=== PATIENT | male | born 1955 | race Caucasian/White ===

== ENCOUNTER 2025-02-05 17:14 | Inpatient (IN) | payer MEDICARE, SELFPAY ==
[2025-02-05] VITALS (8 sets, daily range): BP systolic 94–122; BP diastolic 48–73
--- NOTE | 2025-02-05 12:08 | ED.GENMED ---
History of Present Illness
<Junie Jenkins PA-C - Last Filed: 02/05/25 19:40>
General
Chief Complaint: Failure to Thrive
Source: patient and ambulance crew
Exam Limitations: none
Time Seen by Provider: 02/05/25 11:50
History of Present Illness
History of Present Illness:
69yoM with no reported past medical history presenting via EMS for evaluation of failure to thrive. Patient lives in a third floor apartment. His landlord came to visit him today and was concerned about his living situation and called EMS.
Patient reports feeling generally weak for the past few weeks. He last fell about a week ago and reports some right-sided rib discomfort. He denies any head injury or headache. He is losing weight but he is unsure how much. He feels very
dehydrated. He typically only eats a can of pears a day and drinks coffee. On review of systems, he also endorses a cough, shortness of breath, and bilateral leg swelling. No fevers, vomiting, diarrhea. He smokes 1ppd. He has not drank any
alcohol in a few weeks.
Past History
<Junie Jenkins PA-C - Last Filed: 02/05/25 19:40>
Past History
ED Past Medical History: None
ED Past Surgical History: None
Social History
Tobacco: Non-smoker
Phy Exam
<Junie Jenkins PA-C - Last Filed: 02/05/25 19:40>
Physical Exam
Physical Exam:
Chronically ill appearing, severely cachectic
General Physical Exam
General Presentation: no apparent distress
General age: appears older than age
General Skin: warm and dry
General Habitus: cachetic, failure to thrive and poor hygiene
General Mental: alert
General Hydration: dry mucous membranes
ENT Exam
ENT Exam: normocephalic
Cardiovascular Exam
Cardiovascular Exam: regular rate/rhythm and other (2+ pitting edema in bilateral lower extremities)
Pulmonary Exam
Pulmonary Exam: lungs clear, no respiratory distress, no rales, no crackles, no rhonchi and no wheezing
Gastrointestinal Exam
Gastrointestinal Exam: non tender and soft
Neurological Exam
Neurological Exam: alert
[place] Coma Scale
Eye Opening: Spontaneous
Verbal Response: Oriented
Motor Response: Obeys Commands
GCS Total Score: 15
Skin Exam
Skin Exam: warm/dry
Course
<Junie Jenkins PA-C - Last Filed: 02/05/25 19:40>
Orders/Labs/Results
Orders:
Orders
02/05/25 Lunch
Regular
02/05/25 12:05
Cardiac Monitoring- Treatment ONCE
0.9% Sodium Chloride 500 ml [Nss] 500 ml IV BOLUS
CR Ribs-right 3 Vw W/pa Chest* Urgent
Comment:
Reason For Exam: R sided rib pain
02/05/25 12:06
Electrocardiogram (*1) Urgent
Reason for Study: Fatigue / Weakness
EKG- Treatment ONCE
Urinalysis Reflex To Culture Urgent
Date Specimen was Collected: 02/05/25
Time Specimen was Collected: 12:13
02/05/25 12:21
Complete Blood Count/With Diff Urgent
Comprehensive Metabolic Panel Urgent
Free T4 Urgent
Magnesium Urgent
NT-proBNP Urgent
Prothrombin Time Urgent
TSH Reflex To Free T4 Urgent
Total CK [Creatine Phosphokinase] Urgent
Troponin I Urgent
02/05/25 13:07
0.9% Sodium Chloride 500 ml [Nss] 500 ml IV BOLUS
02/05/25 15:40
Admit/Transfer Patient As Directed
Co-Sign Provider:
Level of Care: Inpatient admission
Assign to:: Telemetry
Physician / Group: Hospitalist
Diagnosis: JULIETA
Reason for Telemetry: Arrhythmia
Date to Stop Telemetry: 02/08/25
Time to Stop Telemetry: 11:00
Reason for Hospitalization: JULIETA
Expected length of stay greater than two midnights?: Yes
ELOS- Estimated Length of Stay in days: 2
I certify the patient meets the requirements for IP care: Yes
02/05/25 15:41
PRN Pain Medication Management As Directed
May give lesser potent ordered pain med per pt: Yes
preference::
Protocol:: Medication orders for pain may be administered in a
manner that supports deferring to patient preference
when the pt is:
- Requesting an ordered lesser potent pain medication.
Least to most potent pain medications are defined
as: acetaminophen < NSAID < tramadol < opioids
(morphine, oxycodone, hydromorphone).
- Requesting a lesser dose of the same medication IF
ORDERED.
- Requesting a less intrusive route of administration
if both routes are prescribed by the provider (PO <
IV).
02/05/25 15:42
Code Status As Directed
Resuscitation Status: Do not resuscitate
Reached after discussion with pt or family/Healthcare POA: Yes
DNR Bracelet Application ONCE
02/05/25 15:47
Thiamine Injection 200 mg IV NOW STA
02/05/25 15:48
CT Head W/o Iv Contrast Urgent
Comment:
Reason For Exam: confusion, fall
02/05/25 18:57
Troponin I Q6H
Comment: at admission & every 6 hours x 2 (3 total), ECG to be done with each level
02/05/25 18:57
Echo 2D MMode Color/Doppler Routine
Reason for Study: heart failure
Ferritin Routine
Folate Routine
Haptoglobin [S] Routine
Iron Routine
LDH Routine
Reticulocyte Count Routine
Serum Osmolality Routine
Total Iron Binding Routine
Urine Osmolality Random [Osmolality, Random Urine] Routine
Urine Sodium Routine
Vitamin B12 Routine
Vitamin D, 25-OH Routine
Activity As Directed
Activity Level: As Tolerated
Intake/ Output As Directed
Frequency: Per unit guidelines
Patient Education As Directed
Type: CHF folder
Comment: give on admission. Document in Interdisciplinary Education record
Vital Signs As Directed
Frequency: Other
Additional Instructions:: Q12 or per unit guidelines if more frequent.
Weight As Directed
Frequency: Once
Type of Scale: Standing Scale
Comment: Upon Admission. If unable to stand, use balanced bed scale.
Pulse Ox/cont/shift [RESP] Routine
Quantity: 1
Special Instructions: Daily pulse oximetry at rest. If greater than 92% at rest also obtain pulse oximetry
while ambulating as tolerated.
DX Deep Vein Thrombosis Video Routine
02/05/25 19:15
Heparin 5,000 units SC Q8
02/05/25 20:00
FOLic ACID [Folvite] 1 mg 0.9% Sodium Chloride 50 ml [Nss] 50 ml IV Q24H
Nicotine [Nicoderm Transdermal] 14 mg TRANSDERM DAILY
02/06/25 00:57
Troponin I Q6H
Comment: at admission & every 6 hours x 2 (3 total), ECG to be done with each level
02/06/25 06:00
Complete Blood Count/With Diff IN AM
Comprehensive Metabolic Panel IN AM
Levothyroxine [Synthroid] 25 mcg PO DAILY @ 0600
02/06/25 08:00
Thiamine Injection 100 mg IM DAILY
02/08/25 11:00
DC Protocol for Telemetry ONCE
Abnormal Lab Results
02/05/25
12:21
RBC 2.99 L 10^6/uL
(4.70-6.10)
Hgb 9.6 L g/dL
(13.0-18.0)
Hct 29.2 L %
(39.0-52.0)
MCV 97.7 H fL
(80.0-94.0)
MCH 32.1 H pg
(27.0-31.0)
MCHC 32.9 L g/dL
(33.0-37.0)
Plt Count 84 L 10^3/uL
(130-400)
MPV 12.9 H fL
(7.4-10.4)
Abs Immat Gran (auto) 0.1 H 10^3/uL
(0-0.05)
Absolute Neuts (auto) 9.2 H 10^3/uL
(1.4-6.5)
Absolute Lymphs (auto) 0.6 L 10^3/uL
(1.2-3.4)
Absolute Monos (auto) 0.8 H 10^3/uL
(0.1-0.6)
Immature Gran % 0.7 H %
(0-0.5)
Neutrophils % 86.2 H %
(42.2-75.2)
Lymphocytes % 5.8 L %
(20.5-51.1)
Sodium 133 L mmol/L
(135-145)
BUN 32 H mg/dl
(9-20)
Creatinine 2.3 H mg/dL
(0.7-1.3)
Calcium 7.6 L mg/dl
(8.4-10.2)
Magnesium 2.5 H mg/dl
(1.6-2.3)
AST 82 H U/L
(17-59)
Alkaline Phosphatase 127 H U/L
(38-126)
Creatine Kinase 548 H U/L
(55-170)
Troponin I 0.466 H* ng/ml
Total Protein 4.8 L g/dl
(6.3-8.2)
Albumin 2.2 L g/dl
(3.5-5.0)
TSH (Reflex) 17.50 H uIU/ml
(0.47-4.68)
Free T4 0.60 L ng/dl
(0.78-2.19)
02/05/25 12:21
02/05/25 12:21
Vital Signs
Initial and Last Documented VS:
Initial Vital Signs
Temp
97.7 F
02/05/25 11:46
Last Documented Vital Signs
Temp Pulse Resp BP Pulse Ox
97.7 F 68 16 109/63 98
02/05/25 11:46 02/05/25 19:01 02/05/25 19:01 02/05/25 19:01 02/05/25 19:01
<Erma Phillips MD - Last Filed: 02/05/25 13:12>
Orders/Labs/Results
Orders:
Orders
02/05/25 Lunch
Regular
02/05/25 12:05
Cardiac Monitoring- Treatment ONCE
0.9% Sodium Chloride 500 ml [Nss] 500 ml IV BOLUS
CR Ribs-right 3 Vw W/pa Chest* Urgent
Comment:
Reason For Exam: R sided rib pain
02/05/25 12:06
Electrocardiogram (*1) Urgent
Reason for Study: Fatigue / Weakness
EKG- Treatment ONCE
Urinalysis Reflex To Culture Urgent
Date Specimen was Collected: 02/05/25
Time Specimen was Collected: 12:13
02/05/25 12:21
Complete Blood Count/With Diff Urgent
Comprehensive Metabolic Panel Urgent
Free T4 Urgent
Magnesium Urgent
NT-proBNP Urgent
Prothrombin Time Urgent
TSH Reflex To Free T4 Urgent
Total CK [Creatine Phosphokinase] Urgent
Troponin I Urgent
02/05/25 13:07
0.9% Sodium Chloride 500 ml [Nss] 500 ml IV BOLUS
02/05/25 15:40
Admit/Transfer Patient As Directed
Co-Sign Provider:
Level of Care: Inpatient admission
Assign to:: Telemetry
Physician / Group: Hospitalist
Diagnosis: JULIETA
Reason for Telemetry: Arrhythmia
Date to Stop Telemetry: 02/08/25
Time to Stop Telemetry: 11:00
Reason for Hospitalization: JULIETA
Expected length of stay greater than two midnights?: Yes
ELOS- Estimated Length of Stay in days: 2
I certify the patient meets the requirements for IP care: Yes
02/05/25 15:41
PRN Pain Medication Management As Directed
May give lesser potent ordered pain med per pt: Yes
preference::
Protocol:: Medication orders for pain may be administered in a
manner that supports deferring to patient preference
when the pt is:
- Requesting an ordered lesser potent pain medication.
Least to most potent pain medications are defined
as: acetaminophen < NSAID < tramadol < opioids
(morphine, oxycodone, hydromorphone).
- Requesting a lesser dose of the same medication IF
ORDERED.
- Requesting a less intrusive route of administration
if both routes are prescribed by the provider (PO <
IV).
02/05/25 15:42
Code Status As Directed
Resuscitation Status: Do not resuscitate
Reached after discussion with pt or family/Healthcare POA: Yes
DNR Bracelet Application ONCE
02/05/25 15:47
Thiamine Injection 200 mg IV NOW STA
02/05/25 15:48
CT Head W/o Iv Contrast Urgent
Comment:
Reason For Exam: confusion, fall
02/05/25 18:57
Troponin I Q6H
Comment: at admission & every 6 hours x 2 (3 total), ECG to be done with each level
02/05/25 18:57
Echo 2D MMode Color/Doppler Routine
Reason for Study: heart failure
Ferritin Routine
Folate Routine
Haptoglobin [S] Routine
Iron Routine
LDH Routine
Reticulocyte Count Routine
Serum Osmolality Routine
Total Iron Binding Routine
Urine Osmolality Random [Osmolality, Random Urine] Routine
Urine Sodium Routine
Vitamin B12 Routine
Vitamin D, 25-OH Routine
Activity As Directed
Activity Level: As Tolerated
Intake/ Output As Directed
Frequency: Per unit guidelines
Patient Education As Directed
Type: CHF folder
Comment: give on admission. Document in Interdisciplinary Education record
Vital Signs As Directed
Frequency: Other
Additional Instructions:: Q12 or per unit guidelines if more frequent.
Weight As Directed
Frequency: Once
Type of Scale: Standing Scale
Comment: Upon Admission. If unable to stand, use balanced bed scale.
Pulse Ox/cont/shift [RESP] Routine
Quantity: 1
Special Instructions: Daily pulse oximetry at rest. If greater than 92% at rest also obtain pulse oximetry
while ambulating as tolerated.
DX Deep Vein Thrombosis Video Routine
02/05/25 19:15
Heparin 5,000 units SC Q8
02/05/25 20:00
FOLic ACID [Folvite] 1 mg 0.9% Sodium Chloride 50 ml [Nss] 50 ml IV Q24H
Nicotine [Nicoderm Transdermal] 14 mg TRANSDERM DAILY
02/06/25 00:57
Troponin I Q6H
Comment: at admission & every 6 hours x 2 (3 total), ECG to be done with each level
02/06/25 06:00
Complete Blood Count/With Diff IN AM
Comprehensive Metabolic Panel IN AM
Levothyroxine [Synthroid] 25 mcg PO DAILY @ 0600
02/06/25 08:00
Thiamine Injection 100 mg IM DAILY
02/08/25 11:00
DC Protocol for Telemetry ONCE
Abnormal Lab Results
02/05/25
12:21
RBC 2.99 L 10^6/uL
(4.70-6.10)
Hgb 9.6 L g/dL
(13.0-18.0)
Hct 29.2 L %
(39.0-52.0)
MCV 97.7 H fL
(80.0-94.0)
MCH 32.1 H pg
(27.0-31.0)
MCHC 32.9 L g/dL
(33.0-37.0)
Plt Count 84 L 10^3/uL
(130-400)
MPV 12.9 H fL
(7.4-10.4)
Abs Immat Gran (auto) 0.1 H 10^3/uL
(0-0.05)
Absolute Neuts (auto) 9.2 H 10^3/uL
(1.4-6.5)
Absolute Lymphs (auto) 0.6 L 10^3/uL
(1.2-3.4)
Absolute Monos (auto) 0.8 H 10^3/uL
(0.1-0.6)
Immature Gran % 0.7 H %
(0-0.5)
Neutrophils % 86.2 H %
(42.2-75.2)
Lymphocytes % 5.8 L %
(20.5-51.1)
Sodium 133 L mmol/L
(135-145)
BUN 32 H mg/dl
(9-20)
Creatinine 2.3 H mg/dL
(0.7-1.3)
Calcium 7.6 L mg/dl
(8.4-10.2)
Magnesium 2.5 H mg/dl
(1.6-2.3)
AST 82 H U/L
(17-59)
Alkaline Phosphatase 127 H U/L
(38-126)
Creatine Kinase 548 H U/L
(55-170)
Troponin I 0.466 H* ng/ml
Total Protein 4.8 L g/dl
(6.3-8.2)
Albumin 2.2 L g/dl
(3.5-5.0)
TSH (Reflex) 17.50 H uIU/ml
(0.47-4.68)
Free T4 0.60 L ng/dl
(0.78-2.19)
02/05/25 12:21
02/05/25 12:21
Vital Signs
Initial and Last Documented VS:
Initial Vital Signs
Temp
97.7 F
02/05/25 11:46
Last Documented Vital Signs
Temp Pulse Resp BP Pulse Ox
97.7 F 68 16 109/63 98
02/05/25 11:46 02/05/25 19:01 02/05/25 19:01 02/05/25 19:01 02/05/25 19:01
Laurielt;Junie Jenkins PA-C - Last Filed: 02/05/25 19:40>
MDM/Problems Addressed
Differential Diagnosis Includes:
69yoM presenting via EMS for failure to thrive. Juan Jose call 911 due to poor living conditions. He is cachectic and chronically ill appearing on exam. Has not seen a PCP in many years. Multiple symptoms including generalized weakness, feeling
dehydrated, decreased PO intake, bilateral leg swelling. VSS. Differential diagnosis includes but is not limited to: Failure to thrive, electrolyte abnormality, JULIETA, dehydration, malignancy
Initial ED plan: Check cardiac labs, CK, magnesium, UA, EKG, and CXR. 500cc NS bolus.
<Junie Jenkins PA-C - Last Filed: 02/05/25 19:40>
*Pulse Oximetry
Patient hypoxic: no
*EKG
Interpreted by ED Provider?: Yes
EKG Intrepretation Date: 02/05/25
Heart Rate: 56
Rate: bradycardiac
Rhythm: sinus
[place]: normal axis
Interval: long QT (538)
QRS Pattern: low voltage
Ischemia: T-wave inversion (V2-V3)
*Critical Care Note
Total Time (30-74mins, 75-104mins- exclusive of procedures): Not Applicable
<Junie Jenkins PA-C - Last Filed: 02/05/25 19:40>
Update Note
Update Note:
Multiple abnormalities on lab work. Creatinine 2.3, unclear baseline as no prior labs available for comparison. Hemoglobin 9.6 and platelet count 84. Troponin elevated at 0.466. EKG shows normal sinus rhythm with T wave inversions in V2 and V3.
BNP elevated >322184 so will avoid further IV fluids for now. CXR clear without pulmonary edema. Patient's niece updated via phone and patient admitted for further management.
ED Attending Note
<Junie Jenkins PA-C - Last Filed: 02/05/25 19:40>
-
Portions of this chart may have been created with voice recognition software.� Occasional wrong word or��sound alike� substitutions may have occurred due to the inherent limitations of voice recognition software.
<Erma Phillips MD - Last Filed: 02/05/25 13:12>
ED Attending Note
Patient seen and examined by attending physician: Yes
I performed the substantive portion of visit, reviewed & personally made and approve the management plan that is documented in note by myself or IVY.: Yes
ED Attending Note:
I have seen and evaluated the patient with a [id number] encounter. I have spoken to the [IVY] and involved in the medical history, the physical exam, medical decision making.
Evaluation and management service: agree unless noted differently below.
Results interpretation: agree unless noted differently below.
Patient is a 69-year-old man presenting to the emergency department for evaluation for failure to thrive. Patient states that for the past few weeks been feeling weak. He decreased p.o. intake. He did have a fall about a week ago and has been
having some rib pain. Did not hit his head or lose consciousness. He denies any chest pain difficulty breathing abdominal pain. He does note bilateral lower extremity edema. He does smoke. Denies any alcohol or other drug use. During my
evaluation patient is resting comfortably. He does appear frail. His abdomen is soft nondistended nontender. He does have bilateral lower extremity edema. Will give IV fluids. Will check blood work. Patient will need admission.
Discharge Plan
Departure
Patient Disposition: Admit
Date of Disposition: 02/05/25
Time of Disposition: 14:06
Presentation/result/management discussed w/ accepting MD/DO: Hospitalist
Discharge Problem:
Adult failure to thrive, Acute kidney injury, Elevated troponin, Elevated TSH
Interventions
Interventions:
*Risk Screen - Suicide Last Done: 02/05/25 18:23
*General Assessment Last Done: 02/05/25 11:46
*ED COVID-19 Vaccine History Last Done: 02/05/25 18:23
*Nursing Disposition Last Done: 02/05/25 18:34
Discharge Date and Time
Discharge Date/Time: 02/05/25 18:34
[2025-02-05] MEDS: NSS 500 IV ×2 (12:22→13:27)
[2025-02-05 12:52] LABS: INR 1.09; PT 14.6 Sec (11.4-14.6)
[2025-02-05 12:54] LABS: Hematocrit 29.2 % (39.0-52.0); Hemoglobin 9.6 g/dL (13.0-18.0); Mean Corp Hgb Conc. 32.9 g/dL (33.0-37.0); Mean Corpuscular Volume 97.7 fL (80.0-94.0); Nucleated Red Blood Cells % 0 % (-); Red Cell Dist. Width 14.2 % (11.5-14.5)
[2025-02-05 12:57] LABS: ALT (SGPT) 40 U/L (0-50); AST (SGOT) 82 U/L (17-59); Albumin 2.2 g/dl (3.5-5.0); Alkaline Phosphatase 127 U/L (38-126); Blood Urea Nitrogen 32 mg/dl (9-20); Calcium 7.6 mg/dl (8.4-10.2); Carbon Dioxide 28 mmol/L (22-30); Chloride 105 mmol/L (98-107); Glucose 89 mg/dl (70-99); Magnesium 2.5 mg/dl (1.6-2.3); Potassium 4.6 mmol/L (3.5-5.1); Sodium 133 mmol/L (135-145); Total Protein 4.8 g/dl (6.3-8.2); eGFR 29.62
[2025-02-05 13:14] LABS: Troponin I 0.466 ng/ml
[2025-02-05 13:27] LABS: Platelet Count 84 10^3/uL (130-400)
--- NOTE | 2025-02-05 14:24 | HPS.HSE ---
Family Physician
-
Family Physician: INTERVIEWE UNKNOWN - PT NOT
Chief Complaint
-
Failure to thrive
History of Present Illness
69-year-old male with no reported past medical history presenting via EMS for evaluation of failure to thrive. Patient lives in an apartment, his landlord came to visit him today and was concerned about his living situation, he called EMS. Patient
reports having generalized weakness for the past few weeks. States he fell a week ago and has some right-sided rib discomfort, was not sure how he fell and what caused him to fall. Does not know if he hit his head. Reports he has been losing
weight from the past few months and feels very dehydrated. His appetite has decreased and his daily diet includes a can of pears and coffee, does not drink enough water.. Patient also reports having chronic cough, SOB and bilateral leg swelling.
He denies fever/chills, nausea/vomiting, diarrhea. He smokes cigarettes daily�1 pack/day. Patient does not take any medications at home on a chronic basis, he does not see a primary care provider. Patient denies chest pain, nausea/vomiting,
hematemesis, hematuria, abdominal pain, diarrhea, melena, hematochezia. Per EMS, patient has a hoarding disorder.
ED course�BP 109/63, heart rate 55, afebrile. Hemoglobin�9.6, no platelets 84, sodium 133, BUN/creatinine�32/2.3, calcium 7.6, magnesium 2.5, AST 82, ALT 40, ALP 127, CK5 48, troponin�0.466, proBNP 27,000, TSH 17.5, albumin 2.2.
Chest x-ray with no evidence of pulmonary edema, or cardiomegaly. No findings to suggest recent rib fracture, probable old healed right rib fracture.
Medical History
Past Medical History
Past Medical History: Reports None
Past Surgical History: Reports None
Social History
Tobacco: Smoker (1 pack/day)
Alcohol: Occasional
Drug: None
Personal: Single
Living: Alone
Family History
Family History: Not pertinent
Allergies / Home Medications
Allergies reflects when Allergies were last updated in [facility].
Home Medications with original date entered in [facility]
Allergy/Medication List:
Allergies
Allergy/AdvReac Type Severity Reaction Status Date / Time
No Known Allergies Allergy Verified 02/05/25 11:46
Home Medications
No Meds [No Current Medications] 02/05/25
Review of Systems
-
A 12 point ROS was completed and negative except as noted: Yes
Physical Exam
Vital Signs
Vital Signs
Temp Pulse Resp BP Pulse Ox
97.7 F 57 20 109/63 97
02/05/25 11:46 02/05/25 13:00 02/05/25 13:00 02/05/25 13:00 02/05/25 13:00
Physical Exam
General: Poor Appetite, Appears Chronically Ill and Cachectic
HEENT: NormoCephalic, Atraumatic and Other (Very poor dentition, geographical tongue); No Good Dentition
Respiratory: Clear
Cardiac: S1/S2, Bradycardia and Peripheral Edema (Bilateral lower extremity 2+)
GI: Soft, Non Tender, Non Distended and Normal Bowel Sounds
Skin: Warm, Dry and Other (Multiple open wounds on the upper extremities)
Neuro: Awake, Alert, Oriented and AO x 3
Psych: Calm
Laboratory Results
-
02/05/25 12:21
02/05/25 12:21
Laboratory Results
PT 14.6 Sec (11.4-14.6) 02/05/25 12:21
INR 1.09 02/05/25 12:21
Total Bilirubin 0.9 mg/dl (0.2-1.3) 02/05/25 12:21
AST 82 U/L (17-59) H 02/05/25 12:21
ALT 40 U/L (0-50) 02/05/25 12:21
Alkaline Phosphatase 127 U/L (38-126) H 02/05/25 12:21
Troponin I 0.466 ng/ml H* 02/05/25 12:21
Impression/Plan
-
IMPRESSION: 69-year-old male with no reported past medical history presenting to the ER for evaluation for failure to thrive.
PLAN:
#Failure to thrive
#Protein calorie malnutrition
CBC with macrocytic anemia, low platelets
Patient reports having intermittent episodes of confusion, memory issues, multiple falls.
Will check iron studies
Check serum B12, folate
Check vitamin D levels
Check head CT
Start thiamine and folate
Follow the above blood work
Urinalysis, culture pending
Monitor CBC
Will order diet
#Elevated troponins
No chest pain
EKG sinus bradycardia, no ST segment changes, prolonged QT 538
Trend troponins
# Acute exacerbation of CHF
elevated proBNP
No prior history of CHF
BNP at >27,000
Patient does have chronic SOB, does not appear volume overloaded. No JVD, lungs clear, but has bilateral lower extremity pitting edema 2+.
Check echo
Consider cardiology consult, pending echo
#JULIETA
Creatinine at 2.3
eGFR 29
Will start gentle IV fluids
Monitor BMP
Will check serum osmolality, urine studies- urine sodium, urine osmolality
Consider to consult nephrology if creatinine worsens
#Anemia
Microcytic anemia
Check iron studies, B12, folate
Check reticulocyte count, LDH, haptoglobin
Monitor CBC
#Thrombocytopenia
Platelets 84
No bleeding episodes
Will monitor for now
#Hypothyroidism
TSH 17.50
Will start levothyroxine 25 mcg
#Nicotine use
Will start nicotine patch
#Serum corrected calcium for albumin�9
DVT prophylaxis heparin subcu
Diet regular
DNR
--- NOTE | 2025-02-05 14:55 | W.PN.UPDATE ---
Update Note
Progress Note Update
This is an addendum to H&P written by resident physician Dr. Dominik Cosme
I saw and examined the patient.
The POST CLOSING SPECIALIST's note was reviewed and I agree with the note.
Comment:
Mr. Sameer Hall is a 69 yo man without known medical history (does not follow up with outpatient physicians), 1PPD smoker, presents to ER by EMS for failure to thrive. Patient's landlord came to vitis him today and was concerned about his living
situation.
Triage VS: T 97.7, P 55, RR 11
On exam patient appears very frail, emaciated. [place], no focal deficits. no obvious JVP. Abdomen soft, non-tender. He has bilateral pedal edema.
LABS: WBC 10.7, Hg 9.6, PLT 84, INR 1.09, Na 133, K+ 4.6, Cl 105, CO2 28, BUN 32, Cr 2.3, Glucose 89, Mag 2.5, T. Bili 0.9, AST 82, ALT 40, AlkPhos 127, CK 548, Trop 0.466, BNP > 12145
Ribs with CXR
IMPRESSION:
No findings to confirm recent right rib fracture. Probable old healed right rib fracture.
MAR 500cc x 2
JULIETA versus CKD
Lower Extremity Swelling
-clinically patient appears very dry/dehydrated. Although BNP significantly elevated, he has no obvious JVP. He has pedal edema but is likely 3rd spacing from low albumin. Per history he does not eat or drink much throughout the day.
-s/p fluids in ER, will give gentle fluids overnight
-follow up UA, urine studies
-monitor BMP and if worsening renal function would consult Nephrology tomorrow
-TTE
Recent fall
-patient can't give details of event, will obtain head CT
Severe Protein Calorie Malnutrition suspected
-dietary consult
-start thiamine
Anemia
-follow up iron studies, vitamin B12, folate
Troponin Elevation, suspect non-ischemic Cardiac Injury
-trend Troponin
Hypothyroidism
-TSH 17.50 with free T4 0.60
-start low dose Synthroid
Daily smoker
-offer nicotine patch
DVT PPx hep subQ
DNR
76 minutes spent on patient care
[2025-02-05] MEDS: THIAMINE INJECTION 200 MG IV (16:28)
--- NOTE | 2025-02-05 18:40 | PTCARENOTE ---
Recieved pt. from ed. Pt. oriented to unit and call lindquist within reach. Pt. care ongoing.
--- NOTE | 2025-02-05 18:47 | PTCARENOTE ---
Rn corporate wellness coordinator- Patient's admission completed remotely via phone interview. Patient States that he fell within the last 3month which qualifies him as a fall risk, and that he has been having trouble swallowing and choking with eating. Patient
also states that he drinks 5 or more drinks of vodka 2-3 times a week. This was reported to Annamaria primary nurse and to Dr. Ordonez.
--- NOTE | 2025-02-05 18:49 | W.PN.UPDATE ---
Update Note
Progress Note Update
patient reports drinking vodka 2-3 x/week, 5 ore more drinks. I will order MSAS scoring.
He also reported episodes of choking with food, I will order NPO and ST eval.
[2025-02-05] MEDS: NSS 1000 IV (19:46)
[2025-02-05] MEDS: HEPARIN 5000 UNITS SC (19:47)
[2025-02-05] MEDS: NICODERM TRANSDERMAL TRANSDERM (19:47)
[2025-02-05] MEDS: FOLVITE 50.2 MG IV (20:09)
[2025-02-05 20:24] LABS: Vitamin D, 25-OH*** < 12.8 ng/mL (30-80)
[2025-02-05 20:42] LABS: Ferritin 259.0 ng/ml (17.9-464.0)
[2025-02-05 21:14] LABS: Folate 10.3 ng/ml (2.76-20); Vitamin B12 729 pg/ml (239-931)
[2025-02-05 21:16] LABS: Reticulocyte Count 1.5 % (0.4-2.8)
[2025-02-05 21:40] LABS: Iron 35 ug/dl (49-181); LDH 368 U/L (120-246); Troponin I 0.332 ng/ml
[2025-02-05 21:49] LABS: Total Iron Binding Capacity 145 ug/dl (261-462)
[2025-02-06] VITALS (7 sets, daily range): BP systolic 101–125; BP diastolic 44–66; PULSE 78–93; O2SAT 97–98
[2025-02-06 01:32] LABS: Troponin I 0.316 ng/ml
[2025-02-06] MEDS: SYNTHROID 25 MCG PO (05:13)
--- NOTE | 2025-02-06 05:37 | PTCARENOTE ---
Pt. pulled out IV and tore skin below left elbow. RN cleansed wound and applied foam dressing. Vascular team placed new IV. Pt. care ongoing.
[2025-02-06 07:05] LABS: ALT (SGPT) 34 U/L (0-50); AST (SGOT) 49 U/L (17-59); Albumin 1.9 g/dl (3.5-5.0); Alkaline Phosphatase 108 U/L (38-126); Blood Urea Nitrogen 32 mg/dl (9-20); Calcium 7.7 mg/dl (8.4-10.2); Carbon Dioxide 20 mmol/L (22-30); Chloride 110 mmol/L (98-107); Glucose 34 mg/dl (70-99); Potassium 4.5 mmol/L (3.5-5.1); Sodium 135 mmol/L (135-145); Total Protein 4.4 g/dl (6.3-8.2); eGFR 29.62
[2025-02-06 07:31] LABS: Hepatitis C Antibody Negative (Negative)
[2025-02-06] MEDS: DEXTROSE 50% SYRINGE 12.5 GRAMS IV (08:15)
--- NOTE | 2025-02-06 08:15 | PTOTSP ---
Speech Language Pathology
Pt seen for cognitive-linguistic evaluation via the Mini Mental State Exam. Pt with a score of 16 (total points 30).
Pt also seen for clinical bedside swallow evaluation. Pt reported globus sensation above level of sternal notch with both solids and liquids at home. \\Unsure if history accurate given cognitive deficits. P.O. trials of puree, regular solids, and
thin liquids. Slightly prolonged mastication secondary to limited dentition and caries. Adequate bolus formation and A-P transit noted with no oral residue. No overt signs of aspiration. Pt denied any globus sensation.
Recommend:
(1) IDDSI Level 6 (soft/bite-sized) and thin liquids given dentition
(2) Aspiration precautions: sit upright, slow rate, single sips
(3) Meds as tolerated
(4) Pt lives home alone. Not safe to return home at this time.
(5) LABORATORY MONITOR to continue to follow
[2025-02-06 08:20] LABS: Hematocrit 28.4 % (39.0-52.0); Hemoglobin 9.0 g/dL (13.0-18.0); Mean Corp Hgb Conc. 31.7 g/dL (33.0-37.0); Mean Corpuscular Volume 101.1 fL (80.0-94.0); Nucleated Red Blood Cells % 0 % (-); Platelet Count 78 10^3/uL (130-400); Red Cell Dist. Width 14.3 % (11.5-14.5)
[2025-02-06] MEDS: NICODERM TRANSDERMAL 14 MG TRANSDERM (08:20)
[2025-02-06] MEDS: HEPARIN 5000 UNITS SC ×2 (08:21→20:11)
[2025-02-06] MEDS: THIAMINE INJECTION 200 MG IV ×2 (08:21→20:10)
[2025-02-06] MEDS: VITAMIN D3 (cholecalciferol) 125 MCG PO (08:38)
--- NOTE | 2025-02-06 08:46 | W.PN.HOSP.TC ---
Addendum entered and electronically signed by Dariel Chamorro MD 02/06/25 11:09:
Attending�addendum:
I saw and evaluated the patient. I reviewed the resident�s note and agree with findings and plan as documented in the resident�s note.��patient seen and examined at bedside, admitted yesterday with failure to thrive, fall, acute renal failure,
patient poor historian.
Physical�exam:
GENERAL : Patient looks cachectic
HEENT: Nonicteric sclerae, PERRLA, EOMI. Oropharynx clear. Moist mucous membranes. Conjunctivae appear well perfused.
CHEST: Chest wall is nontender.
HEART: Regular rate and rhythm without murmurs.
LUNGS: Clear to auscultation bilaterally.
ABDOMEN: Soft, positive bowel sounds, nontender, no organomegaly.
RECTAL: Deferred.
MUSCLES/EXTREMITIES: No abnormal range of motion, no swelling.SKIN: No rash, no excessive bruising, petechiae, or purpura.
NEUROLOGIC: Not fully oriented
�
Assessment/plan:
Failure to thrive.
Protein calorie malnutrition
Chronic cough.
CT chest/abdomen/pelvis to rule out malignancy
Acute renal failure.
Unknown baseline.
Nephrology consulted
Elevated troponin
Concern of CHF
Echo pending
Anemia/thrombocytopenia
Monitor
CODE STATUS: DNR
DVT prophylaxis: heparin
Diet: soft
Family communication: Discussed with sister in the phone Kaykay and niece on the phone Sakshi.
Disposition: Pending CT chest/abdomen/pelvis
�
Total time spent on today�s encounter was 60 minutes which included time spent in counseling the patient/family regarding diagnosis and treatment plan as listed above, goals of care, and symptom management. Case was discussed with nursing staff,
specialists, and care coordinators/case management. All labs and imaging personally reviewed by me. Remainder the time spent in detailed review of previous records, lab data, imaging, and other medical provider documentation.
Original Note:
Today's Communication/Plan
-
CT chest/ abdomen/ pelvis with oral contrast
Echo
Trend CBC and CMP
Vitamin D supplementation
Aspiration precautions
Assessment / Plan
Assessment / Plan
IMPRESSION:
A 69 year old with no reported PMH who presents to ED for failure to thrive. His landlord came to visit him yesterday and found his living situation, after which he called EMS. Patient reports having generalized weakness and weight loss for the past
few weeks; had a fall 1 week ago and has had right sided rib discomfort. Unsure if he hit his head. Patient has decreased PO intake; He has chronic cough, shortness of breath and leg swelling at baseline. No fever, chills, chest pain,
nausea/vomiting, hematemesis, hematuria, abdominal pain, diarrhea, blood in stool. Smokes 1 pack of cigarettes a day. No home medications; does not see a PCP. Per EMS, the patient has hoarding disorder.
ED: Hgb 9.6, Na 133, BUN/Cr 32/2.3, calcium 7.6. Troponin 0.466. ProBNP 27,000. TSH 17.5. Albumin 2.2
CXR 02/05/25: no evidence of pulmonary edema/cardiomegaly. No findings to suggest recent rib fracture, probable old healed right rib fracture.
CT head 02/05/25: No acute intracranial abnormalities. Additionally, punctate and patchy areas of low density in the periventricular and subcortical white matter bilaterally. These white matter changes are nonspecific but given the patient's age are
most likely ischemic or degenerative in origin.
PLAN:
# Weight loss
# Chronic cough
# History of smoking - 1 pack a day
Concern for malignancy
Will order CT chest/abdomen/pelvis with oral contrast
# Failure to thrive
# Protein calorie malnutrition
# Anemia
# Episodes of choking
Serum iron low 35, ferritin 259. Iron deficiency anemia.
MCV 101, elevated- macrocytic anemia. Presence of iron deficiency may be decreasing MCV.
B12, Folate normal
Vitamin D <12.8. Started Vitamin D supplementation 125 mcg (5000 IU) daily.
Continue thiamine and folate
UA, Urine culture pending
Monitor CBC
Speech recommending soft and bite sized diet, aspiration precautions, [employer] following.
# Hypoglycemia
Glucose 34 on 02/06, given dextrose 12.5 g. Repeat glucose 102.
Trend BMP
# Elevated troponin
No chest pain
EKG sinus micki, no ST changes, prolonged QT 528
Trend trops: downtrending- 0.466 --> 0.322--> 0.316
# Acute exacerbation of CHF
Chronic shortness of breath
ProBNP 27,000
Awaiting Echo; can consider cardiology consult if needed
# JULIETA
# Hyponatremia
02/05/25 Cr 2.3, BUN 29. No baseline to compare to.
Started on IV fluids
Monitor BMP
Na 133 02/05, improved to 135 on 02/05 after IVF
Consider nephro consult if Cr worsens
# Thrombocytopenia
Platelet count 84 02/05, decreased to 78 02/06
No active bleeding.
Will monitor for now
Can consider hematology consult if continues to worsen
# Hypothyroidism
TSH 17.5
Started on levothyroxine 25 mcg
# Nicotine use
Will start nicotine patch
DVT: heparin sq
DNR
Anticipated Discharge: > 48 hours
Subjective/Interval History
-
Date of Service: February 06, 2025
Patient evaluated at bedside this morning. He states he feels a little better. Patient has had generalized weakness and weight loss over the past few weeks with 1 pack of cigarette use a day. No new complaints overnight.
Objective Data
-
Labs:
Laboratory Results
02/06/25 02/06/25
05:55 05:56
WBC 7.0
Hgb 9.0 L
Hct 28.4 L
Plt Count 78 L
Sodium 135
Potassium 4.5
Chloride 110 H
Carbon Dioxide 20 L
BUN 32 H
Creatinine 2.3 H
Glucose 34 L*
Calcium 7.7 L
Total Bilirubin 0.6
AST 49
ALT 34
Alkaline Phosphatase 108
Vital Signs:
Vital Signs
Temp Pulse Resp BP Pulse Ox
97.4 F 73 28 114/57 98
02/06/25 07:32 02/06/25 07:32 02/06/25 07:32 02/06/25 07:32 02/06/25 07:32
I&O
02/05/25 02/06/25 02/07/25
06:59 06:59 06:59
Intake Total 770 / 770
Balance 770 / 770
Review of Systems
-
History Source: Patient
Constitutional: Reports Weight Loss and Fatigue
EENT: Reports No Symptoms Reported
Respiratory: Reports No Symptoms
Cardiac: Reports No Symptoms
Abdomen/GI: Reports No Symptoms
Breast: Reports No Symptoms
Genitourinary: Reports No Symptoms
Skin: Reports No Symptoms
Neuro: Reports No Symptoms
Endocrine: Reports No Symptoms
Hematologic / Lymphatic: Reports No Symptoms
Allergy / Immunology: Reports No Symptoms
Physical Exam
-
General: No Apparent Distress, Comfortable, Conversant, Appears Chronically Ill and Cachectic
HEENT: Normocephalic, Atraumatic and Moist Mucous Membranes
Respiratory: Clear to Auscultation
Cardiac: Regular Rhythm and S1/S2
GI: Soft, Nontender, Nondistended and Normal Bowel Sounds
Musculoskeletal: No Clubbing, No Cyanosis and No Edema
Skin: Warm
Neuro: Awake and AO x 3
Psych: Calm
Data Reviewed
-
Diagnostic Radiology: Report Reviewed by me, Discussed with Physician and Discussed with Patient
CT Scan: Report Reviewed by me, Discussed with Physician and Discussed with Patient
Labs: Labs Reviewed by me and Discussed with Physician
Old Records: Reviewed
[2025-02-06 08:50] LABS: Glucose - Point of Care 102 mg/dl (70-99)
--- NOTE | 2025-02-06 11:42 | CARDSERVDEF ---
Echocardiogram with Definity completed after protocol screening completed. Allergies verified.
Patent IV site: _Left arm cephalic site clear____
IV site flushed with 0.9% NaCl pre and post administration.
Diluted bolus method utilized to enhance visualization of ventricular correia.
Total volume given: _3___ mL
Patient tolerated all procedures well without complications.
[2025-02-06] MEDS: OMNIPAQUE 50 ML PO (11:51)
[2025-02-06] MEDS: FERRLECIT 110 MG IV (13:11)
--- NOTE | 2025-02-06 13:44 | CM ---
Addendum entered by Aretha Thibodeaux 02/06/25 16:20:
Family meeting with patient ABEL Cantor and nephnu Hinds. Patient family in agreement with plan for psych assessment for capacity and referrals to [facility], [facility] at this time pending medical treatment plan. patient family provided POA document
placed on chart. CM will continue to follow for discharge planning needs.
Addendum entered by Aretha Thibodeaux 02/06/25 14:29:
CM spoke with patient octavia/ABEL who is coming and planning to assess next steps and will talk to Protective services when she arrives.
Original Note:
Patient seen at bedside on . Patient lives with his landlord in a 2 story home with 20+ stairs to apartment. Patient does not have PCP and he does drive. Patient uses [facility] pharmacy in [place]. Patient has a cane but does not use any
assistive devices on a regular basis. Patient stated that he crawled up the stairs to access his home. 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
CM spoke with [place] [phone], protective services. This is a new case per landlord with hoarding observed called in 02/05/25. Psych assessment requested by protective services for capacity to determine level of care needs. Per
therapy recommending SNF placement. CM will tt to physician with update and continue to follow for discharge planning needs.
Plan; SNF vs home with VN pending medical treatment plan
--- NOTE | 2025-02-06 14:10 | W.CON.NEPH ---
Consultation
-
Date/Time Consultation Requested: February 06, 2025 at 8 AM
Date/Time Consultation Performed: February 06 2025 and at 1 PM
Requesting Provider: Renetta Dobson
Performing Provider: Dr. Benson
Reason for Consultation: Acute kidney injury versus chronic kidney disease
Medical History
-
Chief Complaint: Elevated creatinine
History of Present Illness:
69yoM with no reported past medical history presenting via EMS for evaluation of failure to thrive. Patient lives in a third floor apartment. His landlord came to visit him today and was concerned about his living situation and called EMS.
Patient reports feeling generally weak for the past few weeks. He last fell about a week ago and reports some right-sided rib discomfort. He denies any head injury or headache. He is losing weight but he is unsure how much. When I asked him
about specific questioning he tells me others have told me that.
He cooks for his own. He is cachectic in appearance with poor hygiene and poor dentition.
Renal consultation for elevated creatinine of 2.3 unknown baseline has never seen a doctor most of his life apparently.
Past Medical History
No recorded past medical history per patient.
Social History
Tobacco: Smoker
Alcohol: Daily
Family History
Family History: Not Pertinent
Allergies / Home Medications
Allergy/AdvReac Type Severity Reaction Status Date / Time
No Known Allergies Allergy Verified 02/05/25 11:46
�Medication �Instructions �Recorded �Confirmed �Type
No Meds [No Current Medications] 02/05/25 02/05/25 History
Review of Systems
-
Weakness
All other systems: Negative unless noted
Physical Exam
Vital Signs
Vital Signs
Temp Pulse Resp BP Pulse Ox
97.4 F 73 20 122/66 99
02/06/25 07:32 02/06/25 12:20 02/06/25 12:20 02/06/25 12:20 02/06/25 12:20
Lab Results
WBC 7.0 10^3/uL (4.8-10.8) 02/06/25 05:56
RBC 2.81 10^6/uL (4.70-6.10) L 02/06/25 05:56
Hgb 9.0 g/dL (13.0-18.0) L 02/06/25 05:56
Hct 28.4 % (39.0-52.0) L 02/06/25 05:56
Plt Count 78 10^3/uL (130-400) L 02/06/25 05:56
Sodium 135 mmol/L (135-145) 02/06/25 05:55
Potassium 4.5 mmol/L (3.5-5.1) 02/06/25 05:55
Chloride 110 mmol/L (98-107) H 02/06/25 05:55
Carbon Dioxide 20 mmol/L (22-30) L 02/06/25 05:55
BUN 32 mg/dl (9-20) H 02/06/25 05:55
Creatinine 2.3 mg/dL (0.7-1.3) H 02/06/25 05:55
eGFR 29.62 02/06/25 05:55
Glucose 34 mg/dl (70-99) L* 02/06/25 05:55
Calcium 7.7 mg/dl (8.4-10.2) L 02/06/25 05:55
Fxt-I-Zlivdnevzpk Pept > 04000 pg/ml 02/05/25 12:21
Albumin 1.9 g/dl (3.5-5.0) L 02/06/25 05:55
Physical Exam
General no acute distress /cachectic
HEENT no cephalic atraumatic extraocular muscle intact no scleral icterus no JVD neck supple /poor dentition
lungs clear to auscultation bilateral
heart regular S1-S2 positive
abdomen soft nontender positive bowel sounds
extremities no edema pulses present bilateral
Neurologically nonfocal alert and oriented x 3
Skin no lesions no abrasions no petechiae
Psych normal affect no bizarre behavior/flat
Data Reviewed
-
CT Scan: Image Personally Visualized and interpreted
Labs: Labs Reviewed by me, Discussed with Physician and Discussed with Patient
Assessment/Plan
-
69yoM with no reported past medical history presenting via EMS for evaluation of failure to thrive. Patient lives in a third floor apartment. His landlord came to visit him today and was concerned about his living situation and called EMS.
Patient reports feeling generally weak for the past few weeks. He last fell about a week ago and reports some right-sided rib discomfort. He denies any head injury or headache. He is losing weight but he is unsure how much. When I asked him
about specific questioning he tells me others have told me that.
He cooks for his own. He is cachectic in appearance with poor hygiene and poor dentition.
Renal consultation for elevated creatinine of 2.3 unknown baseline has never seen a doctor most of his life apparently.
Impression.
Acute versus chronic kidney disease no baseline.
Failure to thrive with cachexia.
Remote fall no acute fracture
Alcohol use
Tobacco use
Anemia suspect from chronic kidney disease will need to rule out any paraproteins
Plan.
Check renal ultrasound for chronicity
CAT scan to be ordered rule out any malignancy in his cachectic appearance and weight loss.
Check urine indices including protein to creatinine ratio
Check SPEP and UPEP in the setting of anemia and weight loss.
With this option this is chronic in nature from a kidney standpoint and hypocalcemia will check PTH and phosphorus as well as vitamin D level
Will start IV fluids
[2025-02-06] MEDS: NSS 1000 IV (15:41)
--- NOTE | 2025-02-06 15:41 | PN.CDI ---
CDI
- -
CDI:
Physician Documentation Request
Admit Date: 02/05/25 17:14
Dear Doctor,
Patient admitted for failure to thrive.
Nursing documentation clinical panel wound care
02/06/25
00:09
Pressure injury appearance (Stage 1) [Present on admission Sacrum] Non blanchable
red
Pressure injury appearance [Present on admission Sacrum] Ecchymotic -
purple
Ecchymotic -
red
[place] wound bed
Pressure injury stage [Present on admission Sacrum] Stage 2
Treatment provided [Present on admission Sacrum] Silicone border
foam
02/06/25
00:09
Pressure injury appearance (Stage 1) [Present on admission Bilateral Heel] Non blanchable
red
Soft on
palpation (
boggy)
Pressure injury stage [Present on admission Bilateral Heel] Stage 1
Surrounding Skin - [Present on admission Bilateral Heel] Local erythema
Treatment provided [Present on admission Bilateral Heel] Silicone border
foam
Physician documentation of the type and location of wounds is required for compliant documentation. Based on the above clinical findings and your assessment, please provide the following in your progress note:
1. Location of the ulcer/wound, including laterality.
2. Type (etiology) of ulcer/wound:
- Diabetic ulcer
- Arterial (ischemic) ulcer
- Traumatic wound
- Venous stasis ulcer
- Pressure (decubitus) ulcer
- Non-healing surgical wound
- Other
- Unable to determine
3. For a non-pressure ulcer, please indicate the depth/severity:
- Limited to the breakdown of skin
- With fat layer exposed
- With necrosis of muscle
- With necrosis of bone
- Other
- Unable to determine
4. If a pressure ulcer, please also include the stage* of the ulcer:
- Stage 1 - Skin intact, non-blanchable redness
- Stage 2 - Partial thickness loss of dermis, includes intact or open blister
- Stage 3 - Full thickness tissue not including bone, tendon or muscle
- Stage 4 - Full thickness tissue loss, including exposed bone, tendon or muscle
- Unstageable - Full thickness loss in which the base of the ulcer is covered by slough (yellow, clemons, rogers, green or brown) and/or eschar (clemons, brown or black) in the wound bed.
- Unable to determine
Use of terms such as suspected, likely, concern for, or probable (associated with a specific diagnosis that is being evaluated, monitored, or treated as if it exists) are acceptable and can be coded in the inpatient setting, when documented at the
time of discharge.
Thank you,
Rosa Cook RN, BS
CDI Specialist
Available via [place] text
Please use your independent medical judgment in providing your response.
*Source: National Pressure Ulcer Advisory Panel (NPUAP)
[2025-02-06] MEDS: FOLVITE 50.2 MG IV (20:11)
--- NOTE | 2025-02-06 20:30 | PTCARENOTE ---
Day shift RN and another RN attempted to straight cath patient but met with resistance. Urology was contacted to straight cath. Urology placed a harrington at bedside for urinary retention. This RN was bedside while harrington was placed.
--- NOTE | 2025-02-06 20:44 | CONS.URO ---
Consultation
-
Date/Time Consultation Performed: 202902/06/25
Performing Provider: Peffer
Reason for Consultation: Urinary retention
Medical History
History of Present Illness
69M admitted with cachexia and failure to thrive
Found to have JULIETA vs CKD with unknown baseline
As part of workup for possible malignancy, CT scan and renal US was obtained
Images showed distended bladder along with ascites and patient unable to void
Last voided this AM he states, and does not admit to any acute or chronic LUTS
Currently does not feel his bladder is full with no urge
Has not seen a urologist in the past
Urology consulted for difficult harrington as two nurses were unable to place a catheter
Past Medical History
Past Medical History: None
Social History
Alcohol: Daily
Family History
Family History: Reviewed & Not Pertinent
Allergies/Home Medications
Allergies
Allergy/AdvReac Type Severity Reaction Status Date / Time
No Known Allergies Allergy Verified 02/05/25 11:46
Home Medications
�Medication �Instructions �Recorded �Confirmed �Type
No Meds [No Current Medications] 02/05/25 02/05/25 History
Physical Exam
Vital Signs
Vital Signs
Temp Pulse Resp BP Pulse Ox
97.5 F 73 20 122/66 99
02/06/25 20:00 02/06/25 12:20 02/06/25 12:20 02/06/25 12:20 02/06/25 12:20
Lab / Testing Results
Laboratory Results
02/06/25 05:56
02/06/25 05:55
Physical Exam
General: Other (cachectic)
Respiratory: Non Labored Respirations
GI: Soft, Non Tender and Distended
Genito-urinary: No Costovertebral Tend and Clear Urine
Neuro: AO x 3
Psych: Calm and Intact Judgement
Assessment / Plan
-
69M admitted with failure to thrive, cachexia, JULIETA
Found to have significant urinary retention
Urology consulted for difficult harrington
- Regular 16Fr harrington placed at bedside with mild resistance at bladder neck, drainage of 700cc dark yellow urine
- Lack of urge to void or sensation of full bladder suggests chronic voiding dysfunction/urinary retention
- Urinary retention may contribute to JULIETA, though mo hydronephrosis/ureteral reflux noted on imaging and kidneys appear atrophic c/w CKD
- Start tamsulosin for possible BPH related outlet obstruction
- Consider trial of void prior to discharge pending additional medical workup
Will follow peripherally
Please contact urology for further questions regarding inpatient care
[2025-02-06] MEDS: FLOMAX 0.4 MG PO (21:28)
[2025-02-07] VITALS (8 sets, daily range): BP systolic 73–155; BP diastolic 51–85; PULSE 72
[2025-02-07] MEDS: NSS 1000 IV ×2 (02:12→11:46)
[2025-02-07 04:39] LABS: Urine Character Slightly Cloudy (Clear)
[2025-02-07 04:55] LABS: Urine Red Blood Cell 50-60 /HPF (0-2)
[2025-02-07] MEDS: SYNTHROID 25 MCG PO (05:14)
[2025-02-07 07:21] LABS: Hematocrit 28.2 % (39.0-52.0); Hemoglobin 8.9 g/dL (13.0-18.0); Mean Corp Hgb Conc. 31.6 g/dL (33.0-37.0); Mean Corpuscular Volume 101.4 fL (80.0-94.0); Platelet Count 70 10^3/uL (130-400); Red Cell Dist. Width 14.5 % (11.5-14.5)
[2025-02-07 07:49] LABS: Calcium 7.1 mg/dl (8.4-10.2)
[2025-02-07 07:50] LABS: ALT (SGPT) 30 U/L (0-50); AST (SGOT) 31 U/L (17-59); Albumin 1.8 g/dl (3.5-5.0); Alkaline Phosphatase 100 U/L (38-126); Blood Urea Nitrogen 33 mg/dl (9-20); Calcium 7.1 mg/dl (8.4-10.2); Carbon Dioxide 24 mmol/L (22-30); Chloride 111 mmol/L (98-107); Glucose 81 mg/dl (70-99); Potassium 4.1 mmol/L (3.5-5.1); Sodium 136 mmol/L (135-145); Total Protein 4.2 g/dl (6.3-8.2); eGFR 26.80
[2025-02-07 08:03] LABS: Vitamin D, 25-OH*** < 12.8 ng/mL (30-80)
[2025-02-07 08:07] LABS: LDH 315 U/L (120-246)
[2025-02-07] MEDS: HEPARIN 5000 UNITS SC ×2 (08:25→20:12)
[2025-02-07] MEDS: VITAMIN D3 (cholecalciferol) 125 MCG PO (08:25)
[2025-02-07] MEDS: THIAMINE INJECTION 200 MG IV ×2 (08:26→20:13)
[2025-02-07] MEDS: NICODERM TRANSDERMAL 14 MG TRANSDERM (08:29)
--- NOTE | 2025-02-07 08:31 | CON.GI ---
Consultation
-
Date/Time Consultation Requested: 02/06/25 17:24
Date/Time Consultation Performed: 02/07/25 7:00
Requesting Provider: Dr Dariel Chamorro
Performing Provider: Dr. Tommy Horta
Reason for Consultation: weight loss, ascites, concern of cecal mass
Medical History
Chief Complaint / HPI
Chief Complaint: failure to thrive
History of Present Illness:
69yoM without known PMH presenting with recent fatigue and weight loss.
Pt was found by [facility] and brought into the hospital with findings of failure to thrive. Pt reports he has not been to a doctor in many years so he has no diagnosed medical problems and does not take any medications. Pt reports over the last year
he began having immense fatigue and reduced appetite, feeling unwell. He reports drinking about a pint of alcohol a day until he started feeling this way and continues smoking 1ppd. 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
radio during the day. His usual meals consist of hard boiled eggs and 'normal stuff,' endorsing reduced PO intake. Denies throat pain, abdominal pain, changes in BM. Denies changes in caliber of BM, diarrhea, or constipation. Last BM this morning.
He did not clearly answer if he experiences mouth pain. Denies hx of liver issues or noticing jaundice at home. He reports feet swelling since he felt sick. When asked about scabs on his body, he states they must be old but cannot recall why he has
abrasions across his body.
When asked if there is anyone to reach out to and update, he stated that they are updated.
Past Medical History
Past Medical History: None
Social History
Tobacco: Smoker (1ppd)
Alcohol: Former (1 pint per day until recently)
Drug: None
Living: Alone
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
Allergies / Home Medications
Allergy/AdvReac Type Severity Reaction Status Date / Time
No Known Allergies Allergy Verified 02/05/25 11:46
�Medication �Instructions �Recorded
No Meds [No Current Medications] 02/05/25
Review of Systems
-
History Source: Patient
All other systems: A 12 pt ROS was Negative except as stated above in HPI
Constitutional: Reports Weight Loss and Fatigue; Denies Fever or Night Sweats
EENT: Reports Mouth Pain; Denies Sore Throat
Respiratory: Reports No Symptoms
Cardiac: Reports No Symptoms
Abdomen/GI: Reports Anorexia; Denies Abdominal Pain, Nausea, Vomiting, Diarrhea or Constipated
: Reports No Symptoms
Musculoskeletal: Reports Edema (feet swelling)
Skin: Reports No Symptoms
Neurological: Reports No Symptoms
Endocrine: Reports Temperature Intolerance
Vital Signs
Temp Pulse Resp BP Pulse Ox
97.5 F 73 21 120/70 97
02/07/25 07:35 02/07/25 07:35 02/07/25 07:35 02/07/25 07:35 02/07/25 07:35
Physical Exam
Exam
General: No Apparent Distress, Comfortable, Poor Appetite and Other (cachetic, lying in bed under many blankets, wearing glasses, )
HEENT: Normocephalic, Anicteric and Moist Mucous Membranes (poor dentition)
Respiratory: Clear and Non Labored Respirations
Cardiac: S1/S2
GI: Soft, Non Tender and Non Distended (no subcutaneous fat)
Musculoskeletal: Edema (bilateral feet 2+)
Skin: Warm, Dry and Other (old abrasions and scabs)
Neuro: AO x 3 and Nonfocal/Grossly Intact
Psych: Calm
Results
WBC 10.1 10^3/uL (4.8-10.8) 02/07/25 06:38
Hgb 8.9 g/dL (13.0-18.0) L 02/07/25 06:38
Hct 28.2 % (39.0-52.0) L 02/07/25 06:38
MCV 101.4 fL (80.0-94.0) H 02/07/25 06:38
Plt Count 70 10^3/uL (130-400) L 02/07/25 06:38
Absolute Neuts (auto) 5.9 10^3/uL (1.4-6.5) 02/06/25 05:56
PT 14.6 Sec (11.4-14.6) 02/05/25 12:21
INR 1.09 02/05/25 12:21
Sodium 136 mmol/L (135-145) 02/07/25 06:38
Potassium 4.1 mmol/L (3.5-5.1) 02/07/25 06:38
Chloride 111 mmol/L (98-107) H 02/07/25 06:38
Carbon Dioxide 24 mmol/L (22-30) 02/07/25 06:38
BUN 33 mg/dl (9-20) H 02/07/25 06:38
Creatinine 2.5 mg/dL (0.7-1.3) H 02/07/25 06:38
Calcium 7.1 mg/dl (8.4-10.2) L 02/07/25 06:38
Calcium 7.1 mg/dl (8.4-10.2) L 02/07/25 06:38
Total Bilirubin 0.5 mg/dl (0.2-1.3) 02/07/25 06:38
AST 31 U/L (17-59) 02/07/25 06:38
ALT 30 U/L (0-50) 02/07/25 06:38
Alkaline Phosphatase 100 U/L (38-126) 02/07/25 06:38
Hepatitis C Antibody Negative (Negative) 02/06/25 05:56
Diagnostic Image Results: CT ab
Small to moderate right and small left pleural effusions with accompanying bilateral lower lobe subsegmental atelectasis.
Evaluation of the aurora significantly limited without intravenous contrast.
Coronary artery calcifications.
Partial T6 and T7 vertebral compression fractures, age-indeterminate.
Fractures of the lateral aspect of the right eighth, ninth and 10th ribs.
MARKEDLY LIMITED EVALUATION OF THE SOFT TISSUES OF THE ABDOMEN AND PELVIS as a result of numerous factors most prominent lack of intravenous contrast, marked paucity of intra-abdominal fat and MODERATE VOLUME ASCITES. Consider paracentesis for more
complete evaluation.
Small hepatic simple cysts. Findings suggesting some intrahepatic biliary tract dilatation evaluation limited on this unenhanced study. Cannot exclude central intrahepatic low-attenuation malignancy.
Marked widespread pancreatic calcifications most likely predominantly representing chronic pancreatitis.
Overall sb hepatis low-attenuation soft tissue prominence, cannot exclude malignancy, including malignancy of the head of the pancreas. Suggest MRI for more complete evaluation.
No intestinal obstruction or free air. Some colonic stool including the cecum, cannot exclude cecal mass.
Large volume stool filling and mildly distending the rectum.
Atrophic right kidney. Small bilateral renal calcifications either nonobstructing calculi or atherosclerotic vascular.
Layering gallbladder stones and/or sludge.
Prior GI Procedures:
EGD:
Colonoscopy:
Assessment / Plan
-
69yoM no known PMH presenting to the hospital with failure to thrive with concerns of undiagnosed malignancy.
Pt presenting with evidence of failure to thrive with multisystem damage of CHF, JULIETA vs CKD, hypothyroidism, anemia and thrombocytopenia. Iron deficient, macrocytic anemia. Nephrology has ordered myeloma work up. CT abd could not rule out cecal mass
given stool burden with evidence of chronic pancreatitis, ascites. IR was unable to drain ascites given amount. If increases, recommend sending for cytology and SAAG. Due to concerns of chronic pancreatitis and biliary tract dilation, recommend
abdominal MRI with MRCP. Plan for EGD and colonoscopy during this admission as he becomes clinically optimized.
#failure to thrive
# iron deficient, macrocytic anemia
#chronic pancreatitis
- Plan for abdominal MRI with MRCP
- EGD coloniscopy planned for this admission
PENDING ATTENDING RECOMMENDATIONS
-
-
Thank you for consultation and allowing me to participate in the patient's care. Please call the reclamation worker GI physician during the after hours with any questions or concerns.
[2025-02-07 09:20] LABS: Glycohemoglobin (HgbA1c) 5.3 % (4.0-5.9)
--- NOTE | 2025-02-07 09:28 | PN.CDI ---
CDI
- -
CDI:
Physician Documentation Request
Admit Date: 02/05/25 17:14
Dear Doctor,
Patient admitted for failure to thrive.
02/05 Update Note: 'Troponin Elevation, suspect non-ischemic Cardiac Injury'
02/06 Hospitalist PN: 'Elevated troponin, No chest pain, EKG sinus micki, no ST changes, prolonged QT 528, Trend trops: downtrending- 0.466 --> 0.322--> 0.316'
Please clarify the following:
____ - Non-ischemic myocardial injury was present on admission and is now resolved.
____ - Non-ischemic myocardial injury was present on admission and is still being monitored, evaluated or treated
____ - Non-ischemic myocardial injury was ruled out
____ - Non-ischemic myocardial injury is still a likely, suspected, probable diagnosis
____ - Other
____ - Unable to determine
Use of terms such as suspected, likely, concern for, or probable (associated with a specific diagnosis that is being evaluated, monitored, or treated as if it exists) are acceptable and can be coded in the inpatient setting, when documented at the
time of discharge.
Thank you,
Rosa Cook RN, BSN
CDI Specialist
Available via [place] text
Please use your independent medical judgment in providing your response.
--- NOTE | 2025-02-07 11:08 | CON.CAR ---
Addendum entered and electronically signed by Lani Desai DO 02/08/25 15:15:
I saw and examined the patient.
The Bushler's note was reviewed and I agree with the note.
Comment: Patient seen and examined. He is a 69-year-old male who is not seen a medical provider in many years who presented to emergency department 02/05/2025 with failure to thrive and profound malnutrition weight loss who is an active smoker
with alcoholism and self-neglect with suspected chronic pancreatitis versus hepatobiliary malignancy, thrombocytopenia, macrocytic anemia, acute kidney injury, urinary retention, hypothyroidism with TSH 17.5, symptomatic hypoglycemia and
aspiration/dysphagia with episode of choking. Cardiology was consulted due to concerns for heart failure and abnormal cardiac troponin. proBNP greater than 27,000, troponin 0.466-->0.322-->0.316. A 2D echocardiogram showed mildly reduced LV
systolic function, EF 45% with mild LVH and no significant valve disease with small pericardial effusion. Patient is overall a poor historian. He denies chest pain or pressure. He is lying supine and denies shortness of breath. He is also being
evaluated by nephrology, urology, and GI.
GEN: Elderly thin/cachectic male appearing older than stated age, no distress, awake, Ox3
HEENT: supple, anicteric, poor dentition
LUNGS: Poor effort, decreased at the bases with no wheezes. Fine crackles right base.
CV: Reg, S1/S2, no murmur, rub or gallop
ABD: soft, BS+, NT/ND
EXT: +1-2 lower extremity edema with chronic venous stasis changes.
Plan:
Medically complex 69-year-old gentleman with failure to thrive/malnutrition, alcoholism, pancytopenia, acute renal insufficiency with lower extremity edema and bilateral pleural effusions with proBNP greater than 27,000 and an echocardiogram showing
mild LV dysfunction
- Patient does not appear to be acutely volume overload and edema/pleural effusions may be related to hypoalbuminemia state
- He is current receiving IV fluids/albumin per nephrology
- Agree with their plan to decrease IV fluids and attempt to stop. Will follow volume status closely as he may need trial of diuretics; will hold off for now
Patient does have coronary artery calcifications on CT scan but no complaints of chest pain. Given comorbid conditions, plan for medical therapy
- No aspirin given thrombocytopenia
Patient has also been seen by GI as well as general surgery with concern for malignancy. Plan for abdominal MRI with MRCP and possibly EGD and colonoscopy. Will await plan
Original Note:
Consultation
Consultation Request
Date/Time Consultation Requested: 02/07/2025
Date/Time Consultation Performed: 02/07/2025
Requesting Provider: Dr. Dariel Chamorro
Performing Provider: Marycruz Santana PA-C for Dr. Desai
Reason for Consultation: cardiomyopathy, abnormal troponin
Medical History
-
History of Present Illness:
Patient is a 69-year-old male who is not seen a medical provider in many years who presented to emergency department 02/05/2025 with weakness and failure to thrive. Only past medical history he reported to me was he had a seizure 30 years ago. He
previously drank 1 pint of vodka daily up until 9 to 12 months ago when he started feeling bad and stopped. He is a longtime 1 pack a day smoker. Patient's landlord went to visit him and was concerned regarding living situation as well as
generalized weakness and called 911. Patient reports he had fallen a week ago and had some right sided rib pain. He reports he has been losing weight over the last year. Complains of dry cough with dyspnea on exertion and bilateral lower
extremity edema. He denies chest pain. In emergency department hemoglobin was noted to be 9.6 with platelets 84, sodium 133, BUN/creatinine 32/2.3, AST 82, ALT 40, initial troponin 0.46 and proBNP greater than 27,000. TSH noted to be 17.5 and
albumin 2.2. Chest x-ray showed no evidence of cardiopulmonary abnormality. EKG showed sinus bradycardia with nonspecific T wave abnormality and prolonged QTc. Cardiology being asked to see patient given elevated proBNP, abnormal troponin and EF
of 45% on echo
PMH:
Seizure greater than 30 years ago
Prior alcohol abuse
Tobacco abuse
Past Medical History
Past Medical History: Other (See HPI)
Past Surgical History: None
Social History
Tobacco: Smoker
Alcohol: Former (Reports he drank 1 pint of vodka daily for many years, quit approximately 9 to 12 months ago)
Drug: None
Personal: Single
Living: Alone
Employment: Retired
Family History
Family History: Reviewed & Not Pertinent
Allergies / Home Medications
Allergy/AdvReac Type Severity Reaction Status Date / Time
No Known Allergies Allergy Verified 02/05/25 11:46
�Medication �Instructions �Recorded �Confirmed �Type
No Meds [No Current Medications] 02/05/25 02/05/25 History
Review of Systems
-
History Source: Patient
Physical Exam
Vital Signs
Temp Pulse Resp BP Pulse Ox
97.4 F 76 18 135/65 96
02/07/25 08:48 02/07/25 08:48 02/07/25 08:48 02/07/25 08:48 02/07/25 08:48
GEN: Elderly thin/cachectic male appearing older than stated age, no distress, awake, Ox3
HEENT: supple, anicteric, poor dentition
LUNGS: Mildly decreased with fine crackles at bases, no wheezes/rales
CV: Reg, S1/S2, no murmur, rub or gallop
ABD: soft, BS+, NT/ND
EXT: trace to +1 edema on left, trace edema on right, clubbing of fingers
NEURO: Gross non-focal
SKIN: Multiple areas of excoriations, scabs, open wounds on arms no rash
Lab Results
02/07/25 06:38
02/07/25 06:38
Troponin I 0.316 ng/ml H* 02/06/25 00:57
Iuv-A-Tnksglnswsh Pept > 76101 pg/ml 02/05/25 12:21
Impression / Plan
-
PCP: None prior to admission
Cardiology: None prior to admission, initial consultation Dr. Desai
Impression:
Presented 02/05/2025 with weakness and failure to thrive
Failure to thrive
Recent fall
Anemia with thrombocytopenia
Hypothyroidism
JULIETA with unknown creatinine
Urinary retention with indwelling harrington
Heart failure with mildly reduced ejection fraction, proBNP greater than 27,000
Bilateral pleural effusions
Abnormal troponin
Electrolyte derangement
Remote history of seizure disorder
Tobacco abuse
Prior alcohol abuse
Echo 02/06/2025: Technically difficult study requiring Definity contrast: EF 45% mild concentric LVH trace MR/TR. PAP 20 mmHg. Small pericardial effusion
Plan:
Presented 02/05/2025 with weakness and failure to thrive and recent fall.
- Laboratory studies on admission consistent with malnutrition. Ongoing workup to rule out malignancy with multiple specialist consulted. Plan for abdominal MRI with MRCP
- Noted to be anemic possibly anemia of chronic disease. Workup ongoing and GI has been consulted plan for EGD and colonoscopy
- Noted to have JULIETA with unknown baseline renal function and urinary retention now with indwelling Harrington. Creatinine 2.3, now 2.5. Urology and nephrology have been consulted.
- proBNP greater than 27,000 with small bilateral pleural effusions on CT. However ultrasound of right lung without significant pleural effusion. Patient does not appear to be acutely volume overloaded and in fact appears to be a bit dehydrated
and has been receiving IV fluid resuscitation. Need to be cautious to not resuscitate fluids too quickly to prevent heart failure
- Renal ultrasound 02/06/2025 w/ bilateral atrophic kidneys, right smaller in size/volume than left. No findings to suggest renal collecting system dilatation
Patient found to have abnormal troponin which peaked at 0.466 and has trended downward thereafter.
- EKG on admission demonstrated sinus rhythm with nonspecific T wave abnormality and prolonged QT in setting of electrolyte derangement. QTc 530 ms on ECG 02/06. Per review of telemetry no arrhythmias noted. Repeat ECG in a.m.
- CT demonstrated coronary calcifications. Add on lipids to a.m. labs. Consider initiation of statin therapy
- Echo shows mildly reduced EF of 45% with mild concentric LVH and no significant valve disease. Unclear etiology. Could be alcohol induced cardiomyopathy. TSH also noted to be elevated at 17. Cannot rule out ischemic cardiomyopathy as CT
demonstrated coronary calcifications. Patient denies chest pain. Could consider eventual ischemic evaluation once patient has improved/recovered from ongoing acute medical issues
HPI: 02/07/2025:
Patient is a 69-year-old male who is not seen a medical provider in many years who presented to emergency department 02/05/2025 with weakness and failure to thrive. Only past medical history he reported to me was he had a seizure 30 years ago. He
previously drank 1 pint of vodka daily up until 9 to 12 months ago when he started feeling bad and stopped. He is a longtime 1 pack a day smoker. Patient's landlord went to visit him and was concerned regarding living situation as well as
generalized weakness and called 911. Patient reports he had fallen a week ago and had some right sided rib pain. He reports he has been losing weight over the last year. Complains of dry cough with dyspnea on exertion and bilateral lower
extremity edema. He denies chest pain. In emergency department hemoglobin was noted to be 9.6 with platelets 84, sodium 133, BUN/creatinine 32/2.3, AST 82, ALT 40, initial troponin 0.46 and proBNP greater than 27,000. TSH noted to be 17.5 and
albumin 2.2. Chest x-ray showed no evidence of cardiopulmonary abnormality. EKG showed sinus bradycardia with nonspecific T wave abnormality and prolonged QTc. Cardiology being asked to see patient given elevated proBNP, abnormal troponin and EF
of 45% on echo
Data Reviewed
-
EKG: Report Reviewed by me, Discussed with Physician and Discussed with Patient
Radiology: Report Reviewed by me, Discussed with Physician and Discussed with Patient
CT Scan: Report Reviewed by me, Discussed with Physician and Discussed with Patient
Medical Tests (Nuc Med, Echo etc): Report Reviewed by me, Discussed with Physician and Discussed with Patient
Labs: Labs Reviewed by me, Discussed with Physician and Discussed with Patient
--- NOTE | 2025-02-07 12:20 | W.PN.HOSP.TC ---
Addendum entered and electronically signed by Dariel Chamorro MD 02/07/25 13:05:
Attending�addendum:
I saw and evaluated the patient. I reviewed the resident�s note and agree with findings and plan as documented in the resident�s note.��patient seen and examined at bedside, very cachectic, seen by GI and plan for MRCP
Physical�exam:
GENERAL : Patient looks cachectic
HEENT: Nonicteric sclerae, PERRLA, EOMI. Oropharynx clear. Moist mucous membranes. Conjunctivae appear well perfused.
CHEST: Chest wall is nontender.
HEART: Regular rate and rhythm without murmurs.
LUNGS: Clear to auscultation bilaterally.
ABDOMEN: Soft, positive bowel sounds, nontender, no organomegaly.
RECTAL: Deferred.
MUSCLES/EXTREMITIES: No abnormal range of motion, no swelling.SKIN: No rash, no excessive bruising, petechiae, or purpura.
NEUROLOGIC: Not fully oriented
�
Assessment/plan:
Failure to thrive.
Protein calorie malnutrition
Chronic cough.
CT chest/abdomen/pelvis done
GI consulted, for MRCP today
Acute renal failure.
Unknown baseline.
Nephrology consulted
Elevated troponin
Non-ischemic myocardial injury was present on admission and is still being monitored, evaluated or treated
Concern of CHF
Echo shows EF 45%.
Cardiology consulted
Anemia/thrombocytopenia
Monitor
Urinary retention.
Urology consulted
Pressure injury stage [Present on admission Sacrum] Stage 2
Pressure injury stage [Present on admission Bilateral Heel] Stage 1
CODE STATUS: DNR
DVT prophylaxis: heparin
Diet: soft
Family communication: Discussed with sister in the phone Kaykay and niece on the phone Sakshi/discussed in person with niece and nephew
Disposition: MRCP
�
Total time spent on today�s encounter was 60 minutes which included time spent in counseling the patient/family regarding diagnosis and treatment plan as listed above, goals of care, and symptom management. Case was discussed with nursing staff,
specialists, and care coordinators/case management. All labs and imaging personally reviewed by me. Remainder the time spent in detailed review of previous records, lab data, imaging, and other medical provider documentation.
Original Note:
Today's Communication/Plan
-
Nutrition consult
MRI abdomen with MRCP
Continue Figueredo
CM consult for buttermilk drier operator planning
GI, Nephro, Cardio following
UPEP, SPEP to rule out multiple myeloma
Wound care following
Assessment / Plan
Assessment / Plan
IMPRESSION:
A 69-year-old female with no known past medical history, daily smoker, severe self-neglect/hoarding (per landlord/EMS), presenting with failure to thrive, weight loss, profound malnutrition, anemia, renal dysfunction, pleural effusions, ascites and
suspected chronic pancreatitis versus hepatobiliary malignancy.
CXR 02/05/25: no evidence of pulmonary edema/cardiomegaly. No findings to suggest recent rib fracture, probable old healed right rib fracture.
CT head 02/05/25: No acute intracranial abnormalities. Additionally, punctate and patchy areas of low density in the periventricular and subcortical white matter bilaterally. These white matter changes are nonspecific but given the patient's age are
most likely ischemic or degenerative in origin.
CT chest/abdomen/pelvis 02/06/25: Small to moderate right and small left pleural effusions with accompanying bilateral lower lobe subsegmental atelectasis.
Evaluation of the aurora significantly limited without intravenous contrast.
Coronary artery calcifications.
Partial T6 and T7 vertebral compression fractures, age-indeterminate.
Fractures of the lateral aspect of the right eighth, ninth and 10th ribs.
MARKEDLY LIMITED EVALUATION OF THE SOFT TISSUES OF THE ABDOMEN AND PELVIS as a result of numerous factors most prominent lack of intravenous contrast, marked paucity of intra-abdominal fat and MODERATE VOLUME ASCITES. Consider paracentesis for more
complete evaluation.
Small hepatic simple cysts. Findings suggesting some intrahepatic biliary tract dilatation evaluation limited on this unenhanced study. Cannot exclude central intrahepatic low-attenuation malignancy.
Marked widespread pancreatic calcifications most likely predominantly representing chronic pancreatitis.
Overall sb hepatis low-attenuation soft tissue prominence, cannot exclude malignancy, including malignancy of the head of the pancreas. Suggest MRI for more complete evaluation.
No intestinal obstruction or free air. Some colonic stool including the cecum, cannot exclude cecal mass.
Large volume stool filling and mildly distending the rectum.
Atrophic right kidney. Small bilateral renal calcifications either nonobstructing calculi or atherosclerotic vascular.
Layering gallbladder stones and/or sludge.
Renal US 02/06/25: Bilateral atrophic kidneys, right smaller in size/volume than left. No findings to suggest renal collecting system dilatation.
PLAN:
# Failure to thrive
# Protein calorie malnutrition
- Severe weight loss, cachexia, hypoalbuminemia at 2.2, vitamin D deficiency, poor p.o. intake, chronic weakness
- CT shows marked paucity of intra-abdominal fat, supporting severe malnutrition
- MARKETING FINANCE SPECIALIST recommends soft diet
- Encourage PO intake
- Nutrition consult for malnutrition severity grading and calorie goals
- PT/OT following
# Concern for intra-abdominal malignancy-hepatobiliary versus pancreatic
# Bilateral pleural effusions
# Ascites
- CT shows moderate ascites, low-attenuation sb hepatis soft tissue mass-cannot exclude pancreatic head malignancy; chronic pancreatitis with calcifications; possible intrahepatic biliary dilation; cecal stool burden, cannot exclude cecal mass
- High suspicion for pancreatic or hepatobiliary malignancy given weight loss/malnutrition, anemia and smoking history
- Gastroenterology consulted
- MRI abdomen with MRCP for better visualization. Patient to also undergo EGD colonoscopy.
- Ordered paracentesis/thoracentesis for the ascites and pleural effusion seen on imaging. Interventional radiology was consulted but fluid load was not sufficient to be drained.
# Macrocytic anemia with thrombocytopenia
- Initial Hgb 9.6, platelets 84, microcytosis. Iron low, ferritin normal. B12/folate normal.
- This is likely multifactorial due to malnutrition, chronic alcohol use anemia of CKD, possible marrow suppression from malignancy
- Trend CBC. Hgb 8.9 on 11/14.
- Continue folate/thiamine
- SPEP and UPEP in the setting of anemia and weight loss to rule out multiple myeloma
# Acute kidney injury on likely chronic kidney disease
# Hypocalcemia
- CR 2.3 --> 2.5
- Bilateral atrophic kidneys on imaging
- CKD likely due to longstanding medical neglect, not seeing a doctor his entire life
- Nephrology consulted and following.
- Continue IV fluids
- Calcium 7.1. PTH pending.
# Urinary retention/suspected chronic bladder outlet obstruction
- Urology consulted and following
- Difficult Figueredo insertion; urology successfully placed 16 Fr with 700 cc drainage. Could be chronic retention from BPH
- Continue Figueredo, monitor output
- Continue tamsulosin
- Plan trial of void before discharge
# Episodes of choking
- Speech therapy recommends soft diet
- Aspiration precautions
# Hypoglycemia
- Glucose 34 on 02/06, improved after dextrose
- Continue to monitor
# Non-ischemic myocardial injury was present on admission and is still being monitored
# Suspected chronic heart failure with possible acute decompensation
- Troponin 0.466 --> 0.322 --> 0.316. Will monitor.
- proBNP 27,000
- EKG: Sinus bradycardia, QTc 528, no ischemic changes
- Cardiology consulted and following
- Echo shows mildly reduced ejection fraction of 45% with mild concentric LVH and no significant valve disease. Could be alcohol induced cardiomyopathy. TSH also elevated at 17. Cannot rule out ischemic cardiomyopathy as CT demonstrated coronary
calcifications.
- Consider eventual ischemic evaluation once patient has improved/recovered from ongoing acute medical issues
# Hypothyroidism
- TSH 17.5
- Continue levothyroxine 25 mcg daily
# Nicotine use disorder
- Continue nicotine patch
- Offered cessation support once stabilized
# Pressure injury- stage 1 bilateral heels, stage 2 sacrum
- Wound care following
# Social factors
- [facility]
- Case management consult for long-term care planning
DVT: heparin sq
DNR
Anticipated Discharge: > 48 hours
Subjective/Interval History
-
Date of Service: February 07, 2025
Patient evaluated at bedside this morning. He states he feels better than yesterday. No new complaints. Happily eating his breakfast in bed and requesting ketchup as he 'is a true Hungarian.'
Objective Data
-
Labs:
Laboratory Results
02/07/25 02/07/25
06:38 06:38
WBC 10.1
Hgb 8.9 L
Hct 28.2 L
Plt Count 70 L
Sodium 136
Potassium 4.1
Chloride 111 H
Carbon Dioxide 24
BUN 33 H
Creatinine 2.5 H
Glucose 81
Calcium 7.1 L 7.1 L
Total Bilirubin 0.5
AST 31
ALT 30
Alkaline Phosphatase 100
Vital Signs:
Vital Signs
Temp Pulse Resp BP Pulse Ox
97.4 F 87 16 86/51 94
02/07/25 08:48 02/07/25 11:34 02/07/25 11:34 02/07/25 11:34 02/07/25 11:34
I&O
02/06/25 02/07/25 02/08/25
06:59 06:59 06:59
Intake Total 770 / 770 1270 / 1270
Output Total 600 / 600
Balance 770 / 770 670 / 670
Review of Systems
-
History Source: Patient
Constitutional: Reports No Symptoms
EENT: Reports No Symptoms Reported
Respiratory: Reports No Symptoms
Cardiac: Reports No Symptoms
Abdomen/GI: Reports No Symptoms
Breast: Reports No Symptoms
Genitourinary: Reports No Symptoms
Musculoskeletal: Reports No Symptoms
Skin: Reports No Symptoms
Neuro: Reports No Symptoms
Endocrine: Reports No Symptoms
Hematologic / Lymphatic: Reports No Symptoms
Physical Exam
-
General: Well Developed, Comfortable, Conversant, Appears Chronically Ill and Cachectic
HEENT: Normocephalic, Atraumatic and Moist Mucous Membranes
Respiratory: Clear to Auscultation and Non Labored Respirations
Cardiac: Regular Rhythm and S1/S2
GI: Soft, Nontender, Nondistended and Normal Bowel Sounds
Musculoskeletal: No Clubbing, No Cyanosis, Edema, Right Lower Extrem and Edema, Left Lower Extrem
Skin: Warm
Neuro: Awake and AO x 3
Psych: Calm and Intact Judgement/Insight
Data Reviewed
-
CT Scan: Report Reviewed by me and Discussed with Physician
Labs: Labs Reviewed by me, Discussed with Physician and Discussed with Patient
Old Records: Reviewed
--- NOTE | 2025-02-07 14:03 | CM ---
mortgage sales manager continues to follow with patient and plan is for skilled placement, referrals sent to [facility], [facility], and [facility]. Patient and family would like to go to [facility]. Protective Services
following with patient and provided update. Patient's sister and niece also provided update on patient.
Plan; Skilled placement, patient and family are hoping that patient is accepted at [facility], per admissions at [facility] they want to follow with patient progress.
--- NOTE | 2025-02-07 14:05 | WOUNDNOTE ---
UNSTAGEABLE SACRAL PI
--- NOTE | 2025-02-07 14:06 | WOUNDNOTE ---
SACRAL PRESSURE INJURY
--- NOTE | 2025-02-07 14:10 | WOUNDNOTE ---
LEFT ARM SKIN TEARS
--- NOTE | 2025-02-07 14:22 | WOUNDNOTE ---
[facility] RN NOTE: Reviewed chart and met with patient. Patient is a poor historian, but does try to contribute details as he is able. Wound POA include an unstageable PI to his sacrum surrounded by non-blanchable reddened skin, a stage 2 to his left hip,
a stage 1 to his right hip, stage 1 PI to bilateral heels, and a distal and proximal skin tear. Please see worklist for measurements and details. Patient was found to be on an air overlay and an air cushion was added to chair. Patient demonstrated
ability to transfer from chair to bed with moderate assistance. He demonstrates poor appetite and is being followed by Dietary for recommendations. Will recommend Santyl for sacral wound and will defer to Dr. Dobson for surgical consult. Will
recommend Honey Gel for left hip and keeping stage 1 PI covered with foam. Local wound care provided to left arm skin tears. ORQUIDEA Donohue updated and care plan and discharge updated. Will confirm orders with hospitalist. Will continue to follow during
in-patient stay.
[2025-02-07] MEDS: FERRLECIT 110 MG IV (15:49)
[2025-02-07] MEDS: SANTYL OINTMENT 1 APPLIC TOPICAL (15:49)
--- NOTE | 2025-02-07 16:53 | W.PN.NEPH.PH ---
Today's Communication / Plan
-
see plan
Assessment/Plan
-
69yoM with no reported past medical history presenting via EMS for evaluation of failure to thrive. Patient lives in a third floor apartment. His landlord came to visit him today and was concerned about his living situation and called EMS.
Patient reports feeling generally weak for the past few weeks. He last fell about a week ago and reports some right-sided rib discomfort. He denies any head injury or headache. He is losing weight but he is unsure how much. When I asked him
about specific questioning he tells me others have told me that.
He cooks for his own. He is cachectic in appearance with poor hygiene and poor dentition.
Renal consultation for elevated creatinine of 2.3 unknown baseline has never seen a doctor most of his life apparently.
Impression.
Acute versus chronic kidney disease no baseline.
Failure to thrive with cachexia.
Remote fall no acute fracture
Alcohol use
Tobacco use
Anemia suspect from chronic kidney disease will need to rule out any paraproteins
Plan.
elevated cr likely CKD-cr no sig change
UA with UTI sample and U PCR 400mg/gm of cr not causing hypoalbuminemia
Renal ultrasound shows relatively small kidneys R>L and cortical atrophy suggest CKD
CT c/a/p noted, need MRCP per GI
edema likely from hypoalbuminemia + echo noted EF 45%
pemding paraprotein w/u , will send serologies
U retention -non oliguric with PATY harrington follows on flomax
Vit D def, on D3, likely need DR, corrected raffaele is normal
LALITA-on IV fe
BP soft with out meds-monitor
PTH and phosphorus as well as vitamin D level
TSH is up with low FT4-LT4 started
decrease IVF rate and encourage po intake in attempt to wean off IVF
d/w pt
high risk encounter
-
-
Date of Service: February 07, 2025
CC / HPI / ROS
-
Chief Complaint:
JULIETA
History of Present Illness:
cr up at 2.5
non oliguric with harrington
BP soft
no fever
Review of Systems:
no cp or sob
tired and weak
dizzy?
Labs
-
Labs:
WBC 10.1 10^3/uL (4.8-10.8) 02/07/25 06:38
RBC 2.78 10^6/uL (4.70-6.10) L 02/07/25 06:38
Hgb 8.9 g/dL (13.0-18.0) L 02/07/25 06:38
Hct 28.2 % (39.0-52.0) L 02/07/25 06:38
Plt Count 70 10^3/uL (130-400) L 02/07/25 06:38
Sodium 136 mmol/L (135-145) 02/07/25 06:38
Potassium 4.1 mmol/L (3.5-5.1) 02/07/25 06:38
Chloride 111 mmol/L (98-107) H 02/07/25 06:38
Carbon Dioxide 24 mmol/L (22-30) 02/07/25 06:38
BUN 33 mg/dl (9-20) H 02/07/25 06:38
Creatinine 2.5 mg/dL (0.7-1.3) H 02/07/25 06:38
eGFR 26.80 02/07/25 06:38
Glucose 81 mg/dl (70-99) 02/07/25 06:38
Calcium 7.1 mg/dl (8.4-10.2) L 02/07/25 06:38
Calcium 7.1 mg/dl (8.4-10.2) L 02/07/25 06:38
Phosphorus 3.2 mg/dl (2.5-4.5) 02/07/25 06:38
Iat-P-Etoevxkoarb Pept > 69772 pg/ml 02/05/25 12:21
Albumin 1.8 g/dl (3.5-5.0) L 02/07/25 06:38
Physical Exam
-
Vital Signs:
Vital Signs
Temp Pulse Resp BP Pulse Ox
97.2 F 72 18 95/79 98
02/07/25 15:50 02/07/25 15:50 02/07/25 15:50 02/07/25 15:50 02/07/25 15:50
Cardiovascular:: Regular rate and rhythm
Respiratory:: Bilateral: CTA (decreased)
Lung Excursion:: Normal
Abdomen:: Nontender and Soft
Extremity Edema:: +2: Bilateral:
Harrington Catheter: Yes
[2025-02-07] MEDS: FOLVITE 50.2 MG IV (20:13)
[2025-02-07] MEDS: FLOMAX 0.4 MG PO (21:45)
--- NOTE | 2025-02-07 21:45 | FALL ---
Description of Fall:
Injuries Noted:
Action Taken:
Name of Provider Notified:
--- NOTE | 2025-02-07 22:24 | W.PN.UPDATE ---
Update Note
Progress Note Update
Called to evaluate patient s/p fall. Patient evaluated, at first stated he tripped and then stated he was dizzy and fell. He stated he landed on his left elbow. Patient answers questions appropriately, OX3. He denies any pain, can move all
extremities, no obvious malformations, noted. No obvious injuries to patients head, no lacerations, bruising, or swelling noted. Patient unable to tell me if he struck his head when he fell. Patient denies headache, dizziness, nausea, vomiting,
changes in vision. Vital signs: BP 124/74, HR 78, resp 18, 99% on room air, rectal temp 94.1. Patient placed back on noni hugger. Ordered CT head stat out of an abundance of caution.
--- NOTE | 2025-02-07 22:30 | FALL ---
Description of Fall:
At 2022, this RN assessed patient AAOx3, no c/o pain; resting comfortably in bed.
At 2144, Patient had an unwitnessed fall while attempting to get OOB to BSC. PCT found patient laying on the floor. PCT notified this RN for help to safely transfer patient back into bed. A bed alarm was not placed under patient at the time. This RN
immediately placed bed alarm.
House WOOL HAT HYDRAULICKER notified of fall and came to assess patient. No new orders. Assessed was patient's RFA IV, bloody at site. VAT notified.
Patient's post fall VSS> T 94.1, HR 78, BP 124/74, RR 18, pox 99% room air.
Injuries Noted:
Patient states he did not hit his head or develop any other injuries at the time of fall. Skin assessment was done at the time RN found patient. There were no new injuries.
Action Taken:
Order for CT head- pending.
Rigger Third made aware.
Post fall huddle.
Name of Provider Notified: Corrina Omalley
[2025-02-08] MEDS: NSS 1000 IV (01:01)
[2025-02-08 03:00] VITALS: BP 103/45
[2025-02-08] MEDS: SYNTHROID 25 MCG PO (05:49)
--- NOTE | 2025-02-08 06:47 | W.PN.GI.CBS2 ---
Today's Communication / Plan
-
Await MRI Abdomen WWO contrast given previous prominent sb hepatis and c/f malignancy as well as previous ascites. Patient declining EGD/Colon despite counseling especially in light of his previous CT Abd/pelvis. Can re-discuss and consider this
admission if patient is amenable. Rest of care as outlined below.
Assessment / Plan
-
Mr Hall is a 69 y.o male with no known prior past medical history who presented to the ED on 02/05/2025 with weakness and failure to thrive. Patient is somewhat a poor historian, but denies any abdominal pain/discomfort, changes in bowel habits or
other fevers/chills or other constitutional symptoms. Notes decreased oral intake but denies any dysphagia, odynophagia, nausea/vomiting or other significant upper GI symptoms. Does note significant unintentional weight loss as well but unable to
quantify. He has never had a prior EGD or Colonoscopy in the past. He does note drinking 1 pint of vodka on a daily basis for years but stopped over the past year due to feeling 'poorly.' Denies any known liver disease or cirrhosis. Ultimately, he
reports his landlord came to check-in with him and concerned about his living situation and called 911. In the AED, he was found to have labs with BUN 32, Nuclear Technologist 2.3, and LFTs with AST 82, ALT 40, ALP 127, and T Bili 0.9 and albumin 2.2. CBC with WBC
10.7, Hgb 9.6 with MCV 97.7, and plts 84. INR 1.09. CTH was unremarkable and CT Abd/pelvis on 02/06/25 concerning for moderate volume ascites, intrahepatic biliary ductal dilatation and sb hpeatis soft tissue prominence along with large volume of
colonic stool throughout the colon. CT mentioned cannot exclude mass HOP or cecal mass given the findings. Patient was taken for IR for paracentesis this AM on 02/07 however no appreciable ascites to tap on exam. Clinically, patient is presenting
with [id number] with unintentional weight loss with cachexia and CT imaging all highly concerning for malignancy. In regards to his ascites, he does note alcohol use and labs with some degree of synethetic dysfunction however suspect this is
in setting of severe malnutrition. Thus doubt from underlying portal-HTN / cirrhosis and still concern for potential malignant-related ascites. Ultimately, he would benefit from a MRI/MRCP WWO contrast given his prior CT imaging findings concerning
for prominence of the sb hepatis and biliary ductal dilatation along with eventual bi-directional endoscopy given the degree of his weight loss pending clinical course.
#Sjxpxos-ym-Qzvbye
#Unintentional Weight Loss #Cachexia
#Severe Protein Calorie Malnutrition
#JULIETA vs CKD
#Macrocytic Anemia #Thrombocytopenia
#Hx of Prior EtOH Abuse #AUD
#Abnormal CT Imaging #Significant Colonic Stool [place]
Recommendations:
- Diet as tolerated, recommend supplementing with Boosts/Ensures
- Trend Hgb with serial CBC, no evidence of LALITA (iron sat 24% and ferritin 259). Folate and B12 wnl
- Start Miralax 17 gm BiD given large amount of stool burden on imaging
- Await MRI/MRCP WWO contrast for further evaluation given c/f prominence of sb hepatis as seen on CT imaging
- Still would benefit from an eventual bi-directional endoscopy for further evaluation of weight loss and previous abnml CT imaging, however declining at this time despite counseling
- Can re-discuss with patient pursuing scopes pending MRI and consider starting bowel prep pending renal recovery as well if patient wishes to pursue EGD/Colon
- Nephrology and Cardiology following, appreciate recs
- Rest of ongoing supportive care as per primary team
Discussed with primary internal medicine team this AM. GI will continue to follow.
Subjective
Subjective
Date of Service: February 08, 2025
- Taken for CTH head last evening on 02/07/25 given unwitnessed fall, negative for acute intracranial abnormality/hemorrhage
- Otherwise, no acute events overnight
Resting comfortably in bed, chronically-ill and cachectic appearing. Denies any complaints, abdominal pain, or bloody stools. Discussed pursuing an eventual EGD/Colon this admission, however currently declining. Still awaiting MRI Abdomen.
Objective
Data Reviewed
Laboratory Data:
Laboratory Results
PT 14.6 Sec (11.4-14.6) 02/05/25 12:21
INR 1.09 02/05/25 12:21
Phosphorus 3.2 mg/dl (2.5-4.5) 02/07/25 06:38
Magnesium 2.5 mg/dl (1.6-2.3) H 02/05/25 12:21
Total Bilirubin 0.5 mg/dl (0.2-1.3) 02/07/25 06:38
AST 31 U/L (17-59) 02/07/25 06:38
ALT 30 U/L (0-50) 02/07/25 06:38
Alkaline Phosphatase 100 U/L (38-126) 02/07/25 06:38
Vital Signs and I&O:
Vital Signs
Temp Pulse Resp BP Pulse Ox
98.6 F 80 16 103/45 93
02/08/25 04:11 02/08/25 03:00 02/08/25 03:00 02/08/25 03:00 02/08/25 03:00
I&O
02/06/25 02/07/25 02/08/25
06:59 06:59 06:59
Intake Total 770 / 770 1270 / 1270 1130 / 1130
Output Total 600 / 600 625 / 625
Balance 770 / 770 670 / 670 505 / 505
Physical Exam
Physical Exam
HEENT: Anicteric and Other (Dry MM)
Pulmonary: Other (Normal WOB on room air)
GI: Soft, Non Distended and Non Tender
Extremities: Other (Diffuse sarcopenia, cachectic appearing)
Neuro: Non Focal
[2025-02-08 07:17] LABS: Hematocrit 29.8 % (39.0-52.0); Hemoglobin 9.5 g/dL (13.0-18.0); Mean Corp Hgb Conc. 31.9 g/dL (33.0-37.0); Mean Corpuscular Volume 101.0 fL (80.0-94.0); Platelet Count 69 10^3/uL (130-400); Red Cell Dist. Width 14.7 % (11.5-14.5)
[2025-02-08 07:22] LABS: ALT (SGPT) 31 U/L (0-50); AST (SGOT) 31 U/L (17-59); Albumin 1.8 g/dl (3.5-5.0); Alkaline Phosphatase 112 U/L (38-126); Blood Urea Nitrogen 35 mg/dl (9-20); Calcium 7.4 mg/dl (8.4-10.2); Carbon Dioxide 21 mmol/L (22-30); Chloride 112 mmol/L (98-107); Glucose 76 mg/dl (70-99); HDL Cholesterol 51 mg/dl; LDL Cholesterol, Calculated 42 mg/dl; Potassium 4.0 mmol/L (3.5-5.1); Sodium 135 mmol/L (135-145); Total Protein 4.4 g/dl (6.3-8.2); Very Low Density Lipoprotein 17 mg/dl (0-30); eGFR 29.62
[2025-02-08] MEDS: NICODERM TRANSDERMAL 14 MG TRANSDERM (07:29)
[2025-02-08] MEDS: THIAMINE INJECTION 200 MG IV ×2 (07:29→19:51)
[2025-02-08] MEDS: VITAMIN D3 (cholecalciferol) 125 MCG PO (07:29)
[2025-02-08] MEDS: SANTYL OINTMENT 1 APPLIC TOPICAL (07:30)
[2025-02-08] MEDS: HEPARIN 5000 UNITS SC ×2 (07:30→19:50)
[2025-02-08 07:39] VITALS: BP 134/68
[2025-02-08 07:54] LABS: Glucose - Point of Care 59 mg/dl (70-99)
[2025-02-08 08:14] LABS: Glucose - Point of Care 77 mg/dl (70-99)
--- NOTE | 2025-02-08 09:33 | W.PN.HOSP.TC ---
Addendum entered and electronically signed by Dariel Chamorro MD 02/08/25 11:15:
Attending�addendum:
I saw and evaluated the patient. I reviewed the resident�s note and agree with findings and plan as documented in the resident�s note.��patient seen and examined at bedside, patient had a fall last night, patient looks very tired, seen by GI and
patient refused EGD/colonoscopy.
Pending MRCP.
Physical�exam:
GENERAL : Patient looks cachectic
HEENT: Nonicteric sclerae, PERRLA, EOMI. Oropharynx clear. Moist mucous membranes. Conjunctivae appear well perfused.
CHEST: Chest wall is nontender.
HEART: Regular rate and rhythm without murmurs.
LUNGS: rales bilaterally.
ABDOMEN: Soft, positive bowel sounds, nontender, no organomegaly.
RECTAL: Deferred.
MUSCLES/EXTREMITIES: No abnormal range of motion, no swelling.SKIN: No rash, no excessive bruising, petechiae, or purpura.
NEUROLOGIC: Not fully oriented
�
Assessment/plan:
Failure to thrive.
Protein calorie malnutrition
Chronic cough.
CT chest/abdomen/pelvis done
GI consulted, for MRCP
Patient refused EGD/colonoscopy
Acute renal failure.
Unknown baseline.
Nephrology consulted
Elevated troponin
Non-ischemic myocardial injury was present on admission and is still being monitored, evaluated or treated
Concern of CHF
Echo shows EF 45%.
Cardiology consulted
Anemia/thrombocytopenia
Monitor
Urinary retention.
Urology consulted
Pressure injury stage [Present on admission Sacrum] Stage 2
Pressure injury stage [Present on admission Bilateral Heel] Stage 1
CODE STATUS: DNR
DVT prophylaxis: heparin
Diet: soft
Family communication: Discussed with sister in the phone Kaykay and niece on the phone Sakshi then discussed in person with niece and nephew
Disposition: MRCP
�
Total time spent on today�s encounter was 60 minutes which included time spent in counseling the patient/family regarding diagnosis and treatment plan as listed above, goals of care, and symptom management. Case was discussed with nursing staff,
specialists, and care coordinators/case management. All labs and imaging personally reviewed by me. Remainder the time spent in detailed review of previous records, lab data, imaging, and other medical provider documentation.
Original Note:
Today's Communication/Plan
-
MRI abdomen
Ativan prior to imaging
See plan
Assessment / Plan
Assessment / Plan
IMPRESSION:
A 69-year-old female with no known past medical history, daily smoker, severe self-neglect/hoarding (per landlord/EMS), presenting with failure to thrive, weight loss, profound malnutrition, anemia, renal dysfunction, pleural effusions, ascites and
suspected chronic pancreatitis versus hepatobiliary malignancy.
CXR 02/05/25: no evidence of pulmonary edema/cardiomegaly. No findings to suggest recent rib fracture, probable old healed right rib fracture.
CT head 02/05/25: No acute intracranial abnormalities. Additionally, punctate and patchy areas of low density in the periventricular and subcortical white matter bilaterally. These white matter changes are nonspecific but given the patient's age are
most likely ischemic or degenerative in origin.
CT chest/abdomen/pelvis 02/06/25: Small to moderate right and small left pleural effusions with accompanying bilateral lower lobe subsegmental atelectasis.
Evaluation of the aurora significantly limited without intravenous contrast.
Coronary artery calcifications.
Partial T6 and T7 vertebral compression fractures, age-indeterminate.
Fractures of the lateral aspect of the right eighth, ninth and 10th ribs.
MARKEDLY LIMITED EVALUATION OF THE SOFT TISSUES OF THE ABDOMEN AND PELVIS as a result of numerous factors most prominent lack of intravenous contrast, marked paucity of intra-abdominal fat and MODERATE VOLUME ASCITES. Consider paracentesis for more
complete evaluation.
Small hepatic simple cysts. Findings suggesting some intrahepatic biliary tract dilatation evaluation limited on this unenhanced study. Cannot exclude central intrahepatic low-attenuation malignancy.
Marked widespread pancreatic calcifications most likely predominantly representing chronic pancreatitis.
Overall sb hepatis low-attenuation soft tissue prominence, cannot exclude malignancy, including malignancy of the head of the pancreas. Suggest MRI for more complete evaluation.
No intestinal obstruction or free air. Some colonic stool including the cecum, cannot exclude cecal mass.
Large volume stool filling and mildly distending the rectum.
Atrophic right kidney. Small bilateral renal calcifications either nonobstructing calculi or atherosclerotic vascular.
Layering gallbladder stones and/or sludge.
Renal US 02/06/25: Bilateral atrophic kidneys, right smaller in size/volume than left. No findings to suggest renal collecting system dilatation.
CT head 02/07/2025: Stable. No acute intracranial hemorrhage. No skull fracture. No significant interval change.
PLAN:
# Failure to thrive
# Protein calorie malnutrition
- Severe weight loss, cachexia, hypoalbuminemia at 2.2, vitamin D deficiency, poor p.o. intake, chronic weakness
- CT shows marked paucity of intra-abdominal fat, supporting severe malnutrition
- SOCIOLOGY ADJUNCT INSTRUCTOR recommends IDDSI 6 soft diet
- Encourage PO intake
- Nutrition consult for malnutrition severity grading and calorie goals
- PT/OT following
# Fall due to dizziness
- Patient had a fall overnight 02/07/2025
- No head strike but CT head ordered due to caution. CT head as above.
- Endorsed left elbow pain, states it is much improved today 02/08/2025
- Fall precautions
- PT/OT
- Orthostats
# Hypoalbuminemia
- Albumin 1.8 02/07/2025.
- Will give albumin 25% 100 ml over 24 hours
# Concern for intra-abdominal malignancy-hepatobiliary versus pancreatic
# Bilateral pleural effusions
# Ascites
- CT shows moderate ascites, low-attenuation sb hepatis soft tissue mass-cannot exclude pancreatic head malignancy; chronic pancreatitis with calcifications; possible intrahepatic biliary dilation; cecal stool burden, cannot exclude cecal mass
- High suspicion for pancreatic or hepatobiliary malignancy given weight loss/malnutrition, anemia and smoking history
- Gastroenterology consulted
- Patient refused EGD/colonoscopy
- MRI abdomen with MRCP for better visualization. Patient to be given Ativan prior to imaging.
- Ordered paracentesis/thoracentesis for the ascites and pleural effusion seen on imaging. Interventional radiology was consulted but fluid load was not sufficient to be drained.
- Consider palliative care vs hospice conversation with patient and family.
# Macrocytic anemia with thrombocytopenia
- Initial Hgb 9.6, platelets 84, microcytosis. Iron low, ferritin normal. B12/folate normal.
- This is likely multifactorial due to malnutrition, chronic alcohol use anemia of CKD, possible marrow suppression from malignancy
- Trend CBC. Hgb 8.9 on 02/07.
- Continue folate/thiamine
- SPEP and UPEP in the setting of anemia and weight loss to rule out multiple myeloma
# Acute kidney injury on likely chronic kidney disease
# Hypocalcemia
# Secondary Hyperparathyroidism
- CR 2.3 --> 2.5
- Bilateral atrophic kidneys on imaging
- CKD likely due to longstanding medical neglect, not seeing a doctor his entire life
- Nephrology consulted and following.
- Continue IV fluids
- Calcium 7.1. PTH elevated at 150. Likely secondary hyperparathyroidism due to underlying CKD.
# Urinary retention/suspected chronic bladder outlet obstruction
- Urology consulted and following
- Difficult Figueredo insertion; urology successfully placed 16 Fr with 700 cc drainage. Could be chronic retention from BPH
- Continue Figueredo, monitor output
- Continue tamsulosin
- Plan trial of void before discharge
# Episodes of choking
- Speech therapy recommends soft diet
- Aspiration precautions
# Hypoglycemia
- Glucose 34 on 02/06, improved after dextrose
- Continue to monitor
# Non-ischemic myocardial injury was present on admission and is still being monitored
# Suspected chronic heart failure with possible acute decompensation
- Troponin 0.466 --> 0.322 --> 0.316. Will monitor.
- proBNP 27,000
- EKG: Sinus bradycardia, QTc 528, no ischemic changes
- Cardiology consulted and following
- Echo shows mildly reduced ejection fraction of 45% with mild concentric LVH and no significant valve disease. Could be alcohol induced cardiomyopathy. TSH also elevated at 17. Cannot rule out ischemic cardiomyopathy as CT demonstrated coronary
calcifications.
- Consider eventual ischemic evaluation once patient has improved/recovered from ongoing acute medical issues
# Hypothyroidism
- TSH 17.5
- Continue levothyroxine 25 mcg daily
# Nicotine use disorder
- Continue nicotine patch
- Offered cessation support once stabilized
# Pressure injury- stage 1 bilateral heels, stage 2 sacrum
- Wound care following
# Social factors
- EMS reported hoarding disorder. Landlord reporting unsafe living situation.
- Case management consult for long-term care planning
DVT: heparin sq
DNR
Anticipated Discharge: > 48 hours
Subjective/Interval History
-
Date of Service: February 08, 2025
Patient evaluated at bedside this morning. He states he fell last night due to dizziness. Left elbow pain is much improved. Patient currently on a bear hugger.
Objective Data
-
Labs:
Laboratory Results
02/08/25 02/08/25
06:01 06:02
WBC 6.5
Hgb 9.5 L
Hct 29.8 L
Plt Count 69 L
Sodium 135
Potassium 4.0
Chloride 112 H
Carbon Dioxide 21 L
BUN 35 H
Creatinine 2.3 H
Glucose 76
Calcium 7.4 L
Total Bilirubin 0.6
AST 31
ALT 31
Alkaline Phosphatase 112
Vital Signs:
Vital Signs
Temp Pulse Resp BP Pulse Ox
98.6 F 81 20 134/68 98
02/08/25 04:11 02/08/25 07:39 02/08/25 07:39 02/08/25 07:39 02/08/25 08:52
I&O
02/07/25 02/08/25 02/09/25
06:59 06:59 06:59
Intake Total 1270 / 1270 1130 / 1130
Output Total 600 / 600 625 / 625
Balance 670 / 670 505 / 505
Review of Systems
-
History Source: Patient
All other systems: Reviewed and negative
Constitutional: Reports No Symptoms and Fatigue
EENT: Reports No Symptoms Reported
Respiratory: Reports No Symptoms
Cardiac: Reports No Symptoms
Breast: Reports No Symptoms
Genitourinary: Reports No Symptoms
Endocrine: Reports No Symptoms
Hematologic / Lymphatic: Reports No Symptoms
Allergy / Immunology: Reports No Symptoms
Physical Exam
-
General: Well Developed, Conversant, Appears Chronically Ill and Cachectic
HEENT: Normocephalic, Atraumatic, Moist Mucous Membranes and Anicteric
Respiratory: Clear to Auscultation
Cardiac: Regular Rhythm and S1/S2
GI: Soft, Nontender, Nondistended and Normal Bowel Sounds
Genito-urinary: Figueredo
Musculoskeletal: No Clubbing, No Cyanosis, Edema, Right Lower Extrem and Edema, Left Lower Extrem
Skin: Warm
Neuro: Awake
Psych: Calm
Data Reviewed
-
Labs: Labs Reviewed by me, Discussed with Physician and Discussed with Patient
Old Records: Reviewed
[2025-02-08 11:04] VITALS: BP 102/52
[2025-02-08 11:21] LABS: Glucose - Point of Care 83 mg/dl (70-99)
[2025-02-08] MEDS: FLEXBUMIN 100 IV ×2 (12:12→21:54)
[2025-02-08] MEDS: FERRLECIT 110 MG IV (14:26)
[2025-02-08 15:20] VITALS: BP 113/46
--- NOTE | 2025-02-08 16:03 | CM ---
CM reviewed chart, consult received for hospice.
VM left for patients sister to discuss hospice and options for patient.
CM will continue to follow for all discharge planning needs.
Plan; discuss hospice with family, SNF with hospice likely
--- NOTE | 2025-02-08 16:52 | W.PN.NEPH.PH ---
Today's Communication / Plan
-
observe with gentle IVF
Assessment/Plan
-
69yoM with no reported past medical history presenting via EMS for evaluation of failure to thrive. Patient lives in a third floor apartment. His landlord came to visit him today and was concerned about his living situation and called EMS.
Patient reports feeling generally weak for the past few weeks. He last fell about a week ago and reports some right-sided rib discomfort. He denies any head injury or headache. He is losing weight but he is unsure how much. When I asked him
about specific questioning he tells me others have told me that.
He cooks for his own. He is cachectic in appearance with poor hygiene and poor dentition.
Renal consultation for elevated creatinine of 2.3 unknown baseline has never seen a doctor most of his life apparently.
Impression.
Acute versus chronic kidney disease no baseline.
Failure to thrive with cachexia.
Remote fall no acute fracture
Alcohol use
Tobacco use
Anemia suspect from chronic kidney disease will need to rule out any paraproteins
Plan.
elevated cr likely CKD-cr no sig change
UA with UTI sample and U PCR 400mg/gm of cr not causing hypoalbuminemia
Renal ultrasound shows relatively small kidneys R>L and cortical atrophy suggest CKD
CT c/a/p noted, need MRCP per GI
edema likely from hypoalbuminemia + echo noted EF 45%
pending paraprotein w/u and serologies
U retention -non oliguric with PATY harrington follows on flomax
Vit D def, on D3, likely need DR, corrected arffaele is normal
LALITA-on IV fe
BP soft with out meds
SHPTH from vit D def
TSH is up with low FT4-LT4 started
encourage po intake in attempt to wean off IVF
More altered today, GOC discussion with family -hospice consulted
poor prognosis
-
-
Date of Service: February 08, 2025
CC / HPI / ROS
-
Chief Complaint:
JULIETA
History of Present Illness:
cr stable at 2.3
bicarb at 21
barely non oliguric with harrington
BP soft
no fever
Review of Systems:
poor historian with confusion and hallucinations
Labs
-
Labs:
WBC 6.5 10^3/uL (4.8-10.8) 02/08/25 06:02
RBC 2.95 10^6/uL (4.70-6.10) L 02/08/25 06:02
Hgb 9.5 g/dL (13.0-18.0) L 02/08/25 06:02
Hct 29.8 % (39.0-52.0) L 02/08/25 06:02
Plt Count 69 10^3/uL (130-400) L 02/08/25 06:02
Sodium 135 mmol/L (135-145) 02/08/25 06:01
Potassium 4.0 mmol/L (3.5-5.1) 02/08/25 06:01
Chloride 112 mmol/L (98-107) H 02/08/25 06:01
Carbon Dioxide 21 mmol/L (22-30) L 02/08/25 06:01
BUN 35 mg/dl (9-20) H 02/08/25 06:01
Creatinine 2.3 mg/dL (0.7-1.3) H 02/08/25 06:01
eGFR 29.62 02/08/25 06:01
Glucose 76 mg/dl (70-99) 02/08/25 06:01
Calcium 7.4 mg/dl (8.4-10.2) L 02/08/25 06:01
Phosphorus 3.2 mg/dl (2.5-4.5) 02/07/25 06:38
Dyd-U-Xgijppnswli Pept > 66691 pg/ml 02/05/25 12:21
Albumin 1.8 g/dl (3.5-5.0) L 02/08/25 06:01
Physical Exam
-
Vital Signs:
Vital Signs
Temp Pulse Resp BP Pulse Ox
98.6 F 78 20 113/46 94
02/08/25 04:11 02/08/25 15:20 02/08/25 15:20 02/08/25 15:20 02/08/25 15:20
Cardiovascular:: Regular rate and rhythm
Respiratory:: Bilateral: Coarse
Lung Excursion:: Normal
Abdomen:: Nontender and Soft
Extremity Edema:: +1: Bilateral:
Harrington Catheter: Yes
[2025-02-08 16:56] LABS: Glucose - Point of Care 127 mg/dl (70-99)
[2025-02-08] MEDS: FOLVITE 50.2 MG IV (19:50)
[2025-02-08 21:36] LABS: Glucose - Point of Care 99 mg/dl (70-99)
[2025-02-08] MEDS: FLOMAX 0.4 MG PO (21:54)
[2025-02-08] MEDS: MELATONIN 5 MG PO (21:56)
[2025-02-08 23:00] VITALS: BP 95/52
--- NOTE | 2025-02-08 23:53 | W.PN.UPDATE ---
Update Note
Progress Note Update
~ 20:15 RN TT'd to request something for restlessness and c/o pain. Asked RN to give Tylenol. On evaluation, patient in bed, resting quietly.
RN attempted to get rectal temperature, unable. Patient felt cool to touch, placed on Lynn hugger.
~ 00:30 Rechecked temperature 90.1, continued on bairhugger.
5 am Rapid response called. Patient unresponsive, respirations shallow, BP 78/53, 90% 4L NC, HR 88, accucheck 54. Given 1 amp dextrose 50%, NSS 500 ml bolus.
Called family and spoke with patient's sister Kaykay and patient's niece Sakshi, updated on events overnight. Reviewed plan of care, to actively treat hypotension, kidney failure vs. comfort care.
Patient's family have chosen to make patient comfort care at this time. Family is on their way. Patient is being moved into a private room 437.
--- NOTE | 2025-02-09 00:35 | PTCARENOTE ---
Unable to get a temp on pt (even a rectal) Pt able to wake up but very drowsy. Pt was more restless at beginning of shift, continuously swinging legs over side. JORGE ALBERTO Houser notified of events. Bear luis danielgger placed on pt. Rectal temp rechecked = 90.1
F. melatonin ordered and given. Will continue monitoring closely.
[2025-02-09] MEDS: FLEXBUMIN 100 IV (04:36)
--- NOTE | 2025-02-09 04:44 | RR ---
Pt found unresponsive to sternal rub. BP 70s/30s. 84% on RA. HR 88. RR 20. temp 99.0. blood glucose= 54. IVF hanging, dextrose given. placed on 4L NC. A Rapid Response was called on this patient, please see Rapid Response form.
[2025-02-09 04:50] VITALS: BP 75/39
[2025-02-09] MEDS: SYNTHROID PO (04:52)
[2025-02-09 05:06] LABS: Glucose - Point of Care 54 mg/dl (70-99)
[2025-02-09] MEDS: DEXTROSE 50% SYRINGE 12.5 GRAMS IV (05:07)
[2025-02-09 05:30] VITALS: BP 88/43
[2025-02-09 07:59] VITALS: BP 63/26
[2025-02-09 08:04] LABS: Hematocrit 22.2 % (39.0-52.0); Mean Corp Hgb Conc. 30.6 g/dL (33.0-37.0); Mean Corpuscular Volume 104.7 fL (80.0-94.0); Platelet Count 31 10^3/uL (130-400); Red Cell Dist. Width 14.8 % (11.5-14.5)
[2025-02-09 08:05] LABS: Hemoglobin 6.8 g/dL (13.0-18.0)
--- NOTE | 2025-02-09 08:25 | W.PN.UPDATE ---
Update Note
Progress Note Update
Brief GI Note:
Patient transitioned to comfort care upon review of chart after RR was called given concern for patient's unresponsiveness, shallow respirations and glucose accucheck of 54. Patient's family chose to pursue comfort care and at bedside this AM.
Patient not examined.
Discussed with nursing and primary IM team this AM. GI will sign-off, please re-contact with any questions or concerns.
[2025-02-09 08:29] LABS: Absolute Neutrophils -Man Diff 1.6 10^3/uL (1.4-6.5); Normal RBC Morphology No; Platelets Checked Yes
[2025-02-09 08:30] LABS: Acanthocytes 3+; Anisocytosis 1+; Burr Cells 1+; Hypochromasia 1+; Polychromasia 1+; Schistocytes 1+; Total Cells Counted 100
[2025-02-09] MEDS: NSS IV (08:30)
--- NOTE | 2025-02-09 08:35 | PTCARENOTE ---
Addendum entered by Jayde Pate RN 02/09/25 10:22:
02/09- [facility] was called. Endorsement Clerk speaking with family. Bereavement tray called into kitchen for family. Will begin Post-Mortem assessments after Endorsement Clerk is done speaking with family. Patient remains in room at this time.
Original Note:
02/09- This RN entered patient's room for morning rounds, knowing patient was already on Comfort Measures. Entered room with patient already . Family states it occurred around 8:30.
[2025-02-09 08:38] LABS: ALT (SGPT) 18 U/L (0-50); AST (SGOT) 17 U/L (17-59); Albumin 1.8 g/dl (3.5-5.0); Alkaline Phosphatase 53 U/L (38-126); Blood Urea Nitrogen 41 mg/dl (9-20); Calcium 7.1 mg/dl (8.4-10.2); Carbon Dioxide 23 mmol/L (22-30); Chloride 113 mmol/L (98-107); Glucose 67 mg/dl (70-99); Magnesium 2.0 mg/dl (1.6-2.3); Potassium 4.4 mmol/L (3.5-5.1); Sodium 136 mmol/L (135-145); Total Protein 3.7 g/dl (6.3-8.2); eGFR 26.80
[2025-02-09] MEDS: SANTYL OINTMENT TOPICAL (08:42)
--- NOTE | 2025-02-09 08:56 | HOSPNOTE ---
Hospice referral received. Notified by CM that patient passed. Reviewed the next steps with CM. Hospice will sign off.
--- NOTE | 2025-02-09 10:15 | W.PN.DEATH ---
Documented by User: Renetta Dobson MD, Resident 02/09/25 10:16
Pronouncement of
-
Called to see patient to pronounce.
No spontaneous heart tones or respirations noted.
Patient not responsive to verbal stimuli.
Patient is pronounced .
Time of : 08:30
Date of : 02/09/25
Family Notified: Yes

Documented by User: Dariel Chamorro MD 02/09/25 11:10
Pronouncement of
-
Called to see patient to pronounce.
No spontaneous heart tones or respirations noted.
Patient not responsive to verbal stimuli.
Patient is pronounced .
�����eVital���� Case ID:�[id number]
--- NOTE | 2025-02-09 10:19 | W.DCSUMMARY ---
Addendum entered and electronically signed by Dariel Chamorro MD 02/09/25 11:42:
Attending�addendum:
I saw and evaluated the patient. I reviewed the resident�s note and agree with findings and plan as documented in the resident�s note.�
Patient admitted with profound failure to thrive and severe protein calorie malnutrition, concern of underlying GI malignancy but patient refused EGD/colonoscopy to GI and also was not able to do MRCP, condition deteriorated and multiple discussions
with family obtained, decision made for comfort measures only.
Patient pronounced on February 09, 2025 at 8:30 am.
Total time spent on today�s encounter was 40 minutes which included time spent in counseling the patient/family regarding diagnosis and treatment plan as listed above, goals of care, and symptom management. Case was discussed with nursing staff,
specialists, and care coordinators/case management. All labs and imaging personally reviewed by me. Remainder the time spent in detailed review of previous records, lab data, imaging, and other medical provider documentation.
Original Note:
Documented by User: Renetta Dobson MD, Resident 02/09/25 11:32
Discharge Summary
Discharge Data
Date of Admission: 02/05/25
Date of Discharge: 02/09/25
-
Pending Results: No
Hospital Course
Discharging Physician : Dr. Dariel Chamorro and Dr. Renetta Dobson
Disposition :
Primary care physician : None
Hospital Course : A 69-year-old male with a profound failure to thrive, severe protein calorie malnutrition, JULIETA on likely chronic kidney disease, microcytic anemia with thrombocytopenia, pleural effusions, ascites and CT findings concerning for
possible pancreatic or hepatobiliary malignancy was admitted after being found living in unsafe/hoarded conditions by landlord with marked self-neglect. Despite nutritional support, speech guided diet modification, PT/OT involvement and specialty
consultations which included gastroenterology/nephrology/cardiology/urology, his condition continued to decline, and further diagnostic workup (MRI/MRCP) was limited due to his poor functional status and his decision to decline invasive procedures.
On 02/09/2025 he developed worsening hypothermia and clinical decompensation which prompted a rapid response around 5 AM. Given his severe frailty, suspected advanced malignancy and lack of reversible options and extensive goals of care discussion
was held with his sister (who holds power of assistant city attorney) and niece-who elected for comfort care measures only. Hospice was consulted. However, the patient passed peacefully later that morning at approximately 8:30 AM under comfort focused care.
Important imaging findings :
CXR 02/05/25: no evidence of pulmonary edema/cardiomegaly. No findings to suggest recent rib fracture, probable old healed right rib fracture.
CT head 02/05/25: No acute intracranial abnormalities. Additionally, punctate and patchy areas of low density in the periventricular and subcortical white matter bilaterally. These white matter changes are nonspecific but given the patient's age are
most likely ischemic or degenerative in origin.
CT chest/abdomen/pelvis 02/06/25: Small to moderate right and small left pleural effusions with accompanying bilateral lower lobe subsegmental atelectasis.
Evaluation of the aurora significantly limited without intravenous contrast.
Coronary artery calcifications.
Partial T6 and T7 vertebral compression fractures, age-indeterminate.
Fractures of the lateral aspect of the right eighth, ninth and 10th ribs.
MARKEDLY LIMITED EVALUATION OF THE SOFT TISSUES OF THE ABDOMEN AND PELVIS as a result of numerous factors most prominent lack of intravenous contrast, marked paucity of intra-abdominal fat and MODERATE VOLUME ASCITES. Consider paracentesis for more
complete evaluation.
Small hepatic simple cysts. Findings suggesting some intrahepatic biliary tract dilatation evaluation limited on this unenhanced study. Cannot exclude central intrahepatic low-attenuation malignancy.
Marked widespread pancreatic calcifications most likely predominantly representing chronic pancreatitis.
Overall sb hepatis low-attenuation soft tissue prominence, cannot exclude malignancy, including malignancy of the head of the pancreas. Suggest MRI for more complete evaluation.
No intestinal obstruction or free air. Some colonic stool including the cecum, cannot exclude cecal mass.
Large volume stool filling and mildly distending the rectum.
Atrophic right kidney. Small bilateral renal calcifications either nonobstructing calculi or atherosclerotic vascular.
Layering gallbladder stones and/or sludge.
Renal US 02/06/25: Bilateral atrophic kidneys, right smaller in size/volume than left. No findings to suggest renal collecting system dilatation.
CT head 02/07/2025: Stable. No acute intracranial hemorrhage. No skull fracture. No significant interval change.
Discharge Plan
-
Patient Disposition:
Date/Time
Date/Time: 02/09/25 08:30
Discharge Date and Time
Discharge Date/Time: 02/09/25 08:30
Print Language: [place]CI[place]

Documented by User: Dariel Chamorro MD 02/09/25 11:40
Discharge Summary
Discharge Data
Date of Admission: 02/05/25
Date of Discharge: 02/09/25
Discharge Plan
-
Patient Disposition:
Date/Time
Date/Time: 02/09/25 08:30
Discharge Date and Time
Discharge Date/Time: 02/09/25 08:30
Print Language: [place]CI[place]
--- NOTE | 2025-02-09 11:21 | CM ---
CM reviewed chart, patient has .
CM met with patients sister and niece in family waiting room, provided support.
Family interested in cremation, patient/family does not have funding for .
CM reviewed with Hospice, provided family resources including [facility], [facility], [facility] and [facility].
Call to [facility] office- suggested family call [facility] or [facility].
Phone call to patients sister, agreeable to text message with information provided.
CM will continue to follow.
Plan; patient has , resources to family
[2025-02-10 12:49] LABS: 24 Hour Urine Total Volume Random mL; Urine Collection Length Random hr
[2025-02-11 12:29] LABS: ANA, IgG Reflex to HEp-2 None Detected (None Detected)
[2025-02-11 19:24] LABS: Serine Protease-3, IgG 0 AU/mL (0-19)
[2025-02-11 20:39] LABS: Albumin 1.85 g/dL (3.75-5.01); SPEP IFE Reflex Not Done; Total Protein-Electrophoresis 4.0 g/dL (6.3-8.2)
== END 2025-02-09 08:30 | disposition expired | DRG 682 ==
LOC: 4 WEST ACU 17:14
PROVIDERS: Internal Medicine; Physician Assistant; Student in an Organized Health Care Education/Training Program; ADMITTING PHYSICIAN Student in an Organized Health Care Education/Training Program; ATTENDING PHYSICIAN General Practice; EMERGENCY PHYSICIAN Student in an Organized Health Care Education/Training Program; OTHER PHYSICIAN Internal Medicine Cardiovascular Disease; OTHER PHYSICIAN Internal Medicine Nephrology; OTHER PHYSICIAN Student in an Organized Health Care Education/Training Program; OTHER PHYSICIAN Urology
DX: N17.9 Acute kidney failure, unspecified (principal); E43 Unspecified severe protein-calorie malnutrition; R64 Cachexia; J98.11 Atelectasis; R18.8 Other ascites; E87.1 Hypo-osmolality and hyponatremia; I5A Non-ischemic myocardial injury (non-traumatic); I42.6 Alcoholic cardiomyopathy; M48.54XA Collapsed vertebra, not elsewhere classified, thoracic region, initial encounter for fracture; I50.20 Unspecified systolic (congestive) heart failure; I31.39 Other pericardial effusion (noninflammatory); C25.0 Malignant neoplasm of head of pancreas; K80.10 Calculus of gallbladder with chronic cholecystitis without obstruction; K86.1 Other chronic pancreatitis; R62.7 Adult failure to thrive; N25.81 Secondary hyperparathyroidism of renal origin; Z51.5 Encounter for palliative care; E86.0 Dehydration; F17.210 Nicotine dependence, cigarettes, uncomplicated; R54 Age-related physical debility; E03.9 Hypothyroidism, unspecified; N18.9 Chronic kidney disease, unspecified; M79.89 Other specified soft tissue disorders; F42.3 Hoarding disorder; L89.152 Pressure ulcer of sacral region, stage 2; D53.9 Nutritional anemia, unspecified; R29.6 Repeated falls; E16.2 Hypoglycemia, unspecified; D50.9 Iron deficiency anemia, unspecified; R33.9 Retention of urine, unspecified; N26.1 Atrophy of kidney (terminal); I25.10 Atherosclerotic heart disease of native coronary artery without angina pectoris; N28.89 Other specified disorders of kidney and ureter; E88.09 Other disorders of plasma-protein metabolism, not elsewhere classified; D69.6 Thrombocytopenia, unspecified; F10.10 Alcohol abuse, uncomplicated; I87.8 Other specified disorders of veins; N40.1 Benign prostatic hyperplasia with lower urinary tract symptoms; N32.0 Bladder-neck obstruction; K76.89 Other specified diseases of liver; R13.10 Dysphagia, unspecified; D63.1 Anemia in chronic kidney disease; L89.621 Pressure ulcer of left heel, stage 1; L89.611 Pressure ulcer of right heel, stage 1; W19.XXXA Unspecified fall, initial encounter; Y93.9 Activity, unspecified; Y92.9 Unspecified place or not applicable; Z60.2 Problems related to living alone; Z66 Do not resuscitate; Z79.890 Hormone replacement therapy; E55.9 Vitamin D deficiency, unspecified
CPT/HCPCS: 70450; 71101; 71250; 74176; 76604; 76705; 76775; 80053; 80061; 81003; 81015; 82306; 82550; 82570; 82607; 82728; 82746; 82962; 83010; 83036; 83516; 83520; 83540; 83550; 83615; 83735; 83880; 83930; 83935; 83970; 84100; 84155; 84156; 84165; 84300; 84439; 84443; 84484; 85025; 85027; 85045; 85610; 86038; 86160; 86335; 86803; 92523; 92610; 93005; 93307; 96360; 96361; 97163; 97167; 97530; 99285; 99406; J2916; P9047; Q9957